=== PATIENT | male | born 1925 | race Caucasian/White ===

== ENCOUNTER 2016-06-09 11:34 | Inpatient (IN) | payer MEDICARE, BC ==
[~2016-06-09] VITALS: Ht 177.8 cm; Wt 86.8 kg
--- NOTE | ~2016-06-09 | DS ---
PATIENT'S NAME: PANKAJ MARTINEZ [facility] AGE: 89 Y [address] ROOM: [place] [address] [facility] ADMIT DATE: 06/09/2016 Discharge Summary DISCHARGE DATE: 06/27/2016 FAMILY PHYSICIAN: Chris Cool MD ATTENDING PHYSICIAN: Loki Livingston FINAL PRIMARY DISCHARGE DIAGNOSIS: Subdural bleed status post decompression. ADDITIONAL DISCHARGE DIAGNOSES: 1. Fil-DP-xngskcsgh myocardial infarction. 2. Coronary artery disease. 3. Aspiration, complete. 4. Aspiration pneumonia. 5. Hypernatremia. 6. Percutaneous endoscopic gastrostomy placement for tube feeds. 7. Acute cystitis. 8. Encephalopathy/sundowning. 9. Essential hypertension. 10. Tricuspid regurgitation. 11. Pulmonary hypertension. 12. Coronary artery disease. 13. Gastroesophageal reflux disease. 14. Malnutrition. CONSULTATIONS: 1. Dr. Mathew Osuna on admission. 2. [facility] Cardiology for NSTEMI on admission. 3. Palliative Care regarding tube feeding. 4. Nutrition regarding tube feeding. IMAGING STUDIES: The patient had a number of CT scans, which initially showed on admission a subdural hematoma which eventually had progression. The patient subsequently had decompression of the subdural hematoma. On subsequent exams, CT scan showed the patient had some edema which was resolving on his last scan on 06/20/2016. PROCEDURES PERFORMED: 1. Decompression of subdural hematoma. 2. Percutaneous endoscopic gastrostomy tube placement. 3. Modified barium swallow. FINAL DISCHARGE MEDICATION LIST: 1. Jevity at 60 mL/h. 2. Free water flushes 250 mL q.4 hours. 3. Zyloprim 100 mg 1 tablet p.o. q. day. PATIENT'S NAME: PANKAJ MARTINEZ [facility] AGE: 89 Y [address] ROOM: [place] [address] [facility] ADMIT DATE: 06/09/2016 Discharge Summary DISCHARGE DATE: 06/27/2016 FAMILY PHYSICIAN: Chris Cool MD ATTENDING PHYSICIAN: Loki Livingston 4. Amiodarone 200 mg 1 tablet p.o. q. day. 5. Metoprolol 12.5 mg 1 tablet per PEG tube b.i.d. 6. Augmentin 600 mg/5 mL, 2000 mg per PEG tube b.i.d. for 3 more days. 7. Teargen 1 drop 3 times daily in bilateral eyes. 8. Lipitor 80 mg 1 tablet per PEG tube at night. 9. Debrox 2 drops otic every Saturday. 10. Cardura 2 mg 1 tablet per PEG tube every evening. 11. Lasix 20 mg 1 tablet per PEG tube q. day. 12. Robitussin 5 mL per PEG tube twice daily. 13. Multivitamin 7.5 mL per PEG tube twice daily. 14. Aldactone 12.5 mg per PEG tube once daily. 15. Tylenol 325 to 650 mg per PEG tube q.4 hours p.r.n. pain or fever. 16. Atropine 1% ophthalmic solution 1 to 2 drops sublingually q.4 hours as needed for respiratory secretions. 17. Pepcid 20 mg per PEG tube per day p.r.n. 18. Levsin 0.125 mg sublingual 4 times a day p.r.n. secretions. 19. Olanzapine 2.5 mg per PEG tube at night as needed. 20. Zofran 4 mg per PEG tube q.6 hours as needed. 21. Vitamin D3, 2000 units per PEG tube q. day. 22. Vitamin B12, 5000 mcg per PEG tube every morning. 23. PreserVision 1 capsule per PEG tube twice daily. 24. Refresh tears applied to the eyes 3 times daily. 25. Eucerin cream applied 3 times daily as needed for rough skin. 26. Mometasone b.i.d. applied to rash as needed. DISCHARGE PHYSICAL EXAMINATION: GENERAL: A pleasant, but very hard of hearing elderly male, in no acute distress. HEENT: Head is normocephalic and atraumatic. Eyes, conjunctivae clear. Sclerae white. ENT, mucous membranes are dry. HEART: Regular rate and rhythm with a grade 3/6 systolic ejection murmur best heard at the left upper sternal border. LUNGS: Rhonchus sounds present throughout the anterior lung reza. ABDOMEN: Soft, nontender, and nondistended. PEG tube is in place. EXTREMITIES: Warm and well perfused. No clubbing, cyanosis, or edema. SKIN: Rashes consistent with a chronic venous stasis present in bilateral lower extremities. Otherwise, no acute rashes. HOSPITAL COURSE: Briefly, Mr. Pankaj Martinez is an 89-year-old gentleman who previously had the acute lacunar stroke, who had been on Plavix and aspirin, who had a fall sustained on 06/09/2016. He was brought to the emergency department, found to have on CT scan; subdural hematomas. Neurosurgery was consulted. Subsequent scans showed worsening of subdural hematoma. The patient was taken to the operating room for decompression. He did pretty well in the postoperative period. PATIENT'S NAME: LEILANI BALDERAS [facility] AGE: 89 Y [address] ROOM: [id number] [place], [place] [address] LOCATION: [facility] ADMIT DATE: 06/09/2016 Discharge Summary DISCHARGE DATE: 06/27/2016 FAMILY PHYSICIAN: Chris Cool MD ATTENDING PHYSICIAN: Loki Livingston However, the patient did end up having an NSTEMI which was ultimately treated with medical management per Cardiology. He was asymptomatic at that time. The patient did have some sundowning and acute encephalopathy ultimately resolved. He had no significant behaviors, but was pleasantly confused. The patient does have some baseline dementia. Unfortunately, he had developed a urinary tract infection which was treated initially with Rocephin, and the patient did have some clearing of his mental status. He began having significant difficulty with aspiration on modified barium swallow. Found that he was completely aspirating in every 6 minutes. He was made n.p.o. and per the power of city attorney, his son and daughter decided to go forth with a PEG tube. That was placed and the patient was started initially on bolus feeds. He did have some hypernatremia so his free water flushes were adjusted and that ultimately resolved as well. The patient received physical, occupational, and speech therapy while in the hospital. He will need to be transferred to care home facility for further treatment. His overall condition is fair. Prognosis for rehabilitation is poor. FOLLOW-UP RECOMMENDATIONS: 1. Follow up with new primary care provider covering the correction within 1 week. 2. Please call the [facility], if they have any questions or concerns. MD DHAVAL VIDALES/laina ARTHUR: 06/27/2016 09:40:55 /[id number] d: 06/27/16 1145 t: 07/05/16 0853, DISCHARGE SUMMARY
--- NOTE | ~2016-06-09 | CON ---
PATIENT'S NAME: PANKAJ MARTINEZ [facility] AGE: 89 Y [address] ROOM: [place] [address] LOCATION: [facility] ADMIT DATE: 06/09/2016 Consultation DISCHARGE DATE: FAMILY PHYSICIAN: GUADALUPE COOL MD ATTENDING PHYSICIAN: Loki Livingston REFERRING PHYSICIAN: TANESHA HU MD REFERRING PHYSICIAN: Guadalupe Cool MD CHIEF COMPLAINT: Status post subdural with high aspiration risk and need for enteral access. HISTORY OF PRESENT ILLNESS: The patient is an 89-year-old male who had fallen in a half-way. He had a subdural hematoma. This was evacuated. He has had ongoing trouble with oral intake with aspiration. He has been followed by Speech. Continues to have severe signs of aspiration. Because of this, I was asked to discuss PEG tube placement with the family. This had already been discussed in detail, and they had chosen to do this. HOME MEDICATIONS: Included: 1. Allopurinol. 2. Carbamide. 3. Clopidogrel. 4. Lasix. 5. Ranitidine. 6. Simvastatin. 7. Tamsulosin. 8. Metoprolol. 9. Tramadol. 10. Mometasone. 11. Olanzapine. 12. He currently is not on Plavix. ALLERGIES: NONE KNOWN. PAST MEDICAL HISTORY: Subdural, chronic renal failure, anxiety, and dementia. SOCIAL HISTORY: He lives in a half-way. . FAMILY HISTORY: PATIENT'S NAME: PANKAJ MARTINEZ [facility] AGE: 89 Y [address] ROOM: [place] [address] LOCATION: [facility] ADMIT DATE: 06/09/2016 Consultation DISCHARGE DATE: FAMILY PHYSICIAN: GUADALUPE COOL MD ATTENDING PHYSICIAN: Loki Livingston Noncontributory. REVIEW OF SYSTEMS: Somewhat difficult to obtain due to his mentation. PHYSICAL EXAMINATION: GENERAL: He is an elderly, 89-year-old male in no acute distress. HEENT: Head is normocephalic. Eyes are anicteric. HEART: Regular. No murmurs audible. LUNGS: Clear to auscultation bilaterally. ABDOMEN: Soft and nontender. EXTREMITIES: Do reveal edema. ASSESSMENT: 1. Status post subdural hematoma. 2. Frequent aspiration. PLAN: At this point in time, we discussed the findings with Mark's power of attorneys. We discussed Dobbhoff placement with ongoing speech therapy. We discussed no enteral access. We discussed PEG tube placement. Discussed the risks of each of these. After a long discussion with the risks including, but not limited to bleeding, infection, injury to other viscera, cardiac events, and malpositioning of the tube, they understand the risks and would like to proceed. We will keep him n.p.o. and plan on performing this in the near future. PAOLA J MD TARUN MIRAMONTES/kandicel /[id number] d: 06/21/16 1415 t: 06/29/16 1503, CONSULTATION REPORT
--- NOTE | ~2016-06-09 | CON ---
PATIENT'S NAME: LEILANI BALDERAS [facility] AGE: 89 Y [address] ROOM: [place] [address] LOCATION: [facility] ADMIT DATE: 06/09/2016 Consultation DISCHARGE DATE: FAMILY PHYSICIAN: GUADALUPE COOL MD ATTENDING PHYSICIAN: Loki Livingston DATE OF CONSULTATION: 06/09/2016 CHIEF COMPLAINT: Status post fall, bilateral frontal acute subdural hematomas. CLINICAL HISTORY AND HISTORY OF PRESENT ILLNESS: The patient is an 89-year-old male patient who is taking Plavix and had a fall from a standing position at the assisted living facility. The history was obtained from his son. The fall was unwitnessed. The patient was sent to the emergency for further investigations. He had a noncontrast CT head and that showed bilateral frontal acute subdural hematomas, large on the left side with no significant mass effect. The patient was stabilized. I was asked to assess the patient with regard to that. At the time of consultation, the patient denied headaches. He reported pain on the temporal region bilaterally. He denied weakness on his extremities. He denied neck pain or back pain. PAST MEDICAL HISTORY: Hypertension, confusion, and recent stroke. MEDICATIONS: Listed in the patient's chart. PAST SURGICAL HISTORY: CABG surgery, bilateral hip replacements. ALLERGIES: NO KNOWN DRUG ALLERGIES. SOCIAL HISTORY: The patient lives in an assisted living. No smoking or alcohol drinking. FAMILY HISTORY: Noncontributory to the patient's presentation. REVIEW OF SYSTEMS: It was limited, given the patient's confusion. PHYSICAL EXAMINATION: PATIENT'S NAME: LEILANI BALDERAS [facility] AGE: 89 Y [address] ROOM: [place] [address] LOCATION: [facility] ADMIT DATE: 06/09/2016 Consultation DISCHARGE DATE: FAMILY PHYSICIAN: GUADALUPE COOL MD ATTENDING PHYSICIAN: Loki Livingston GENERAL: The patient was cooperative and pleasant. HEENT: Head examination, it showed bruising on the temporal region bilaterally. NECK: No tenderness to palpation. Neck range of motion was painless. No palpable masses. RESPIRATORY: He was not in any respiratory distress. CARDIOVASCULAR: He has palpable pulses on the upper extremities. BACK: Not done. GAIT: Not done. NEUROLOGICAL: He was alert and oriented to himself and to [facility]. He followed 1 and 2 step commands. Pupils were 3 mm and reactive. Face was symmetric. He moves four extremities with no focal weakness. SKIN: It showed evidence of a healed sternotomy scar and bruising on the temporal region bilaterally. INVESTIGATIONS: Noncontrast CT head done here. I personally reviewed that. It showed age- related diffuse brain atrophy. It showed evidence of bilateral frontal acute subdural hematoma, small on the right side, moderate on the left side. No evidence of significant mass effect. IMPRESSION AND PLAN: An 89-year-old male patient on Plavix, had a fall from a standing position. Has bilateral frontal acute subdural hematomas, worse on the left side. His neurological examination is reassuring. RECOMMENDATION: 1. Admission to the hospital under hospitalist. 2. Repeat noncontrast CT head on June 10, 2016, to reassess the hematoma. 3. Hold Plavix. I discussed the imaging findings with the patient's son. I clearly indicated that the patient needs admission for closer observation. I also indicated that repeat noncontrast CT head will be done tomorrow to reassess the hemorrhage. I also talked about the possibility of chronic subdural hematoma, which may require surgical intervention. The patient asked appropriate questions and those were answered to his satisfaction. It was pleasure taking care of this patient and thanks for having us involved. MD IRMA WARREN/laina PATIENT'S NAME: PANKAJ MARTINEZ LEILANI L [facility] AGE: 89 Y [address] ROOM: [place] [address] LOCATION: [facility] ADMIT DATE: 06/09/2016 Consultation DISCHARGE DATE: FAMILY PHYSICIAN: GUADALUPE COOL MD ATTENDING PHYSICIAN: Loki Livingston /[id number] CC: Guadalupe Cool MD d: 06/09/16 1455 t: 06/10/16 5155, CONSULTATION REPORT
--- NOTE | ~2016-06-09 | CON ---
[facility] A[facility] 89 Y [address] ROOM: [address] [address] LOCATION: [facility]ICU ADMIT DATE: 06/09/2016 Consultation DISCHARGE DATE: FAMILY PHYSICIAN: GUADALUPE TOBIN MD ATTENDING PHYSICIAN: Loki Livingston REFERRING PHYSICIAN: TANESHA OSUNA MD A patient of Dr. Garcai as well as Dr. Osuna. Dear Colleagues: Thank you for asking me to see . Xavier Martinez who is an 89-year-old male patient who sustained a fall at the shelter where he is a resident of. He had a subdural hematoma which was evacuated this morning. During the surgery, apparently there was some ST depression noted, and EKG was performed after surgery which shows at least 1 to [address] depression involving leads I, II, aVL, V3, V4, V5, and V6. There is also slight ST elevation involving AVR as well as lead III. This whole pattern is consistent with global ischemia at this time. The patient has prior history of coronary artery bypass grafting done 19 years ago in [place]. He has not had a heart attack, according to his family. The patient currently denies having any chest pains or shortness of breath. His family states he has never had congestive heart failure or atrial fibrillation. He has never had a heart murmur either. The patient is unable to give any history of chest pain at this time. He denies at this time anyway. The patient has history of elevated cholesterol and hypertension. He does not look like he is diabetic. He is an ex-smoker. MEDICATIONS: 1. Allopurinol 100 mg a day. 2. Carbamide peroxide 2 drops in the ear. 3. Clopidogrel 75 mg a day. 4. Lasix 40 mg a day. 5. Ranitidine 150 mg a day. 6. Simvastatin 20 mg a day. 7. Tamsulosin 0.4 mg a day. 8. Vitamin D3. 9. Metoprolol 25 mg half b.i.d. 10. Acetaminophen 325 mg a day. 11. Vitamin B12. 12. Vitamin C. 13. Refresh Tears. [facility] AGE: 89 Y [address] ROOM: [place] [address] LOCATION: [facility] ADMIT DATE: 06/09/2016 Consultation DISCHARGE DATE: FAMILY PHYSICIAN: GUADALUPE TOBIN MD ATTENDING PHYSICIAN: Loki Livingston 14. Tramadol. 15. Mineral oil. 16. Mometasone furoate. 17. Olanzapine. 18. Sodium chloride. ALLERGIES: NO KNOWN DRUG ALLERGIES. PAST MEDICAL HISTORY: 1. Subdural hematoma as mentioned earlier. 2. Chronic renal failure, stage 3. 3. History of elevated blood sugars. 4. Anxiety. 5. Dementia. 6. Chronic edema. SOCIAL HISTORY: The patient lives in a shelter. His appetite and weight have been apparently stable. Sleep is poor. FAMILY HISTORY: No premature coronary artery disease. REVIEW OF SYSTEMS: 1. At this time, in the postoperative status, he is unable to give much of the review of systems other than the fact that he does not have any chest pain. 2. He has a lacunar infarct noted. 3. There is some history of behavioral disorder. PHYSICAL EXAMINATION: VITAL SIGNS: His blood pressure is 120s over 80s, heart rate is in the 90s and regular, respiration is 18, afebrile. HEENT: Normal. NECK: Supple with no JVD, thyromegaly, lymphadenopathy, or carotid bruit. CARDIAC: PMI is not well located. First and second heart sounds are regular. He does have a grade 2/6 systolic murmur heard all over the precordium. CHEST: Clear to auscultation. ABDOMEN: Soft. EXTREMITIES: No edema. CENTRAL NERVOUS SYSTEM: Intact. ASSESSMENT: An 89-year-old male patient with diffuse ST depression postoperatively who had PATIENT'S NAME: XAVIER MARTINEZLEILANI [facility] AGE: 89 Y [address] ROOM: [place] [address] LOCATION: [facility] ADMIT DATE: 06/09/2016 Consultation DISCHARGE DATE: FAMILY PHYSICIAN: GUADALUPE TOBIN MD ATTENDING PHYSICIAN: Loki Livingston a 3-vessel bypass 19 years ago in [place]. This is most consistent with global ischemia at this time. RECOMMENDATIONS: 1. Metoprolol 1 mg IV now. 2. We will consider getting troponins and BNP along with an echo now. He appears to have severe aortic stenosis by clinical exam. Again, I appreciate this opportunity to participate in the care of Mr. Xavier Martinez. MD LEONCIO METCALF/laina /[id number] d: 06/11/16 1725 t: 06/12/16 1326, CONSULTATION REPORT
--- NOTE | ~2016-06-09 | ECHO ---
Transthoracic Echocardiography Report (TTE) Demographics Patient Name LEILANI BALDERAS Date of Study 06/15/2016 L Patient Number [id number] Visit Number [id number] Date of 1925 Room Number [address] Gender Male Number Age 89 year(s) Referring Nestor Quijano Color Checker Anisha Cuenca, Physician RT,RVT,RDCS Physician Interpreting Nestor Quijano Director Commercial Sales Physician MD Supervising Ordering Nestor Quijano MD/MLP Physician MD Nurse Stress [employer] Autobody Repairer Conclusions Summary There is moderate pulmonary hypertension. The pulmonary pressure (RVSP) is 67 mmHg compared to 80s on 06/11/2016. Procedure Type of Study TTE procedure:Echo Limited w/o Contrast. Procedure Date Date: 06/15/2016 Start: 11:21 AM Study Location: Inpatient Portable Technical Quality: Fair Indications:Pulmonary hypertension. Appropriate Use Criteria: 3 Patient Status: Routine Findings Tricuspid Valve There is severe pulmonary hypertension. The pulmonary pressure (RVSP) is 67 mmHg. Contractility Score LV regional wall motion:(0-Non visualized 1-Normal 2-Hypokinesis 3-Akinesis 4-Dyskinesis 5-Aneurysm) Signature dtt: Macie Baez dtd: 06/15/16 1121 Physician Self Edit
--- NOTE | ~2016-06-09 | ER ---
PATIENT'S NAME: LEILANI BALDERAS [facility] AGE: 89 Y [address] ROOM: [place] [address] LOCATION: [facility] ADMIT DATE: 06/09/2016 ER/Outpatient Report DISCHARGE DATE: FAMILY PHYSICIAN: GUADALUPE COOL MD ATTENDING PHYSICIAN: Loki Livingston CHIEF COMPLAINT: Fall. HISTORY OF PRESENT ILLNESS: The patient arrives by ambulance for evaluation after being found down at his home. He has a history of stroke and recently was found down this morning. His down time was approximately up to 45 minutes. There was no alteration in consciousness. Reports from the facility are that he is normally oriented to self and somewhat talkative with confusion regarding situation and location. 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 His son is his primary care provider and is here. There is an area on his left alevism that the son states has been chronic. No other obvious complaints at this time. No recent changes in behavior. PAST MEDICAL HISTORY: Documented on the record and reviewed by me. SOCIAL HISTORY: Documented on the record and reviewed by me. MEDICATIONS: Documented on the record and reviewed by me. ALLERGIES: DOCUMENTED ON THE RECORD AND REVIEWED BY ME. REVIEW OF SYSTEMS: All systems reviewed and are negative as available except as noted in the HPI. PHYSICAL EXAMINATION: VITAL SIGNS: Blood pressure 161/89, pulse 78, respiratory rate is 18, temperature 97.5, and SpO2 is 82% on room air and in mid 90s on 1 to 2 L. GENERAL: Age-appropriate male in no obvious pain or distress. Resting comfortably on exam table. HEENT: Normocephalic and atraumatic other than the area that appears to be old on the left alevism region. No crepitus. Eyes are PERRL. The oropharynx is clear. NECK: Supple. Trachea is midline. CHEST: Heart is regular rate and rhythm with no murmurs. PATIENT'S NAME: LEILANI BALDERAS [facility] AGE: 89 Y [address] ROOM: [place] [address] LOCATION: [facility] ADMIT DATE: 06/09/2016 ER/Outpatient Report DISCHARGE DATE: FAMILY PHYSICIAN: CRISTA, GUADALUPE A MD ATTENDING PHYSICIAN: Loki Livingston LUNGS: Clear to auscultation bilaterally with no rhonchi, wheezes, or rales. ABDOMEN: Soft, nontender, and nondistended. No rebound or guarding. BACK: Nontender to palpation throughout. No CVA tenderness. NEUROLOGIC: The patient is awake, he is interactive, he is conversant. He is oriented to self, but not to location, but does know he is in [place]. Does not know the date. He does follow commands in all 4 extremities. EXTREMITIES: The extremities are warm and well perfused with no obvious abnormalities. SKIN: Grossly intact otherwise. LABORATORY DATA AND IMAGING STUDIES: Labs and X-rays: A CT scan of the head is notable for left-sided subdural hematomas. Labs; WBC 10.2, hemoglobin 14.7, and platelets of 187,000. INR is 1.0. PTT is 27. Sodium is 137, potassium 3.8, chloride 100, CO2 is 26, BUN is 28, creatinine is 1.6, and GFR is 41, this appears to be baseline. Troponin I is below threshold. CRP is 0.32. ProBNP is 1258 with no external signs of increased volume. Procalcitonin is below threshold. Blood gas; pH of 7.40, pCO2 is 40, and pO2 is 55 on 3 L giving a saturation of 88%. Lactate is 1.52. Urinalysis; 25 leukocytes, 15 protein, 150 blood, wbc's 0-2, rbc's 20- 50, epithelial cells are rare, and bacteria is negative. EKG reveals sinus rhythm, first-degree heart block with sinus arrhythmia. No signs of acute ischemia. No comparison is immediately available. Chest x-ray was reviewed and found to be grossly normal per my read. Radiology opinion pending. IMPRESSION: 1. Fall with traumatic subdural hemorrhage. 2. Baseline elevation of renal function. 3. Hypoxia, undetermined etiology, improved with supplemental oxygen. 4. Depressed mental status, baseline. EMERGENCY DEPARTMENT COURSE: The patient was evaluated as above. Upon receipt of the head CT results, I consulted Dr. Osuna, neurosurgeon. He is recommending no interventions at this time. The patient was placed on supplemental oxygen and was saturating in the low 90s without any respiratory distress. His BNP is slightly elevated, but there are no outward signs of heart failure as explanation for his hypoxia and his current presentation does not appear to be sepsis. I am unsure as to the etiology. He has no evidence of DVT and thus PE, I feel is less likely. He is on Plavix and that will need to be held for several days. All questions were answered for the family. The patient was admitted to Dr. Livingston, primary care provider covering for patient's primary, Dr. Guadalupe Cool. Family was updated at the bedside and they are amenable to the current plan. He is otherwise DNR, would not want extreme measures to keep his heart going according to documentation from the facility. All questions were answered and the patient was admitted to the hospital without further issue. PATIENT'S NAME: LEILANI BALDERAS [facility] AGE: 89 Y [address] ROOM: [id number] [place] [id number] LOCATION: [facility] ADMIT DATE: 06/09/2016 ER/Outpatient Report DISCHARGE DATE: FAMILY PHYSICIAN: GUADALUPE COOL MD ATTENDING PHYSICIAN: Loki Livingston MD RUCHI TORIBIO/kandicel /[id number] d: 06/09/16 2249 t: 06/11/16 1044, OUTPATIENT REPORT
--- NOTE | ~2016-06-09 | HP ---
PATIENT'S NAME: PANKAJ MARTINEZ [facility] AGE: 89 Y [address] ROOM: [place] [address] LOCATION: [facility] ADMIT DATE: 06/09/2016 History & Physical DISCHARGE DATE: FAMILY PHYSICIAN: GUADALUPE TOBIN MD ATTENDING PHYSICIAN: Tobias Salas DATE OF SERVICE: CHIEF COMPLAINT: Fall. HISTORY OF PRESENT ILLNESS: The patient is an 89-year-old male, who had a fall [facility] was brought to the emergency department. He was found to have an acute left subdural hemorrhage without mass effect. The patient is also noted to have an elevated BNP, but the normal chest x-ray and to be at his baseline with cognition with his dementia. The patient denies having any pain, headaches, visual changes, chest pain, shortness of breath or abdominal pain. PAST MEDICAL HISTORY: 1. Dementia. 2. Behavioral disorder. 3. Anxiety. 4. Coronary artery disease. 5. Chronic edema. 6. Essential hypertension. 7. Hyperlipidemia. 8. Lacunar infarct. FAMILY HISTORY: Noncontributory. SOCIAL HISTORY: The patient is a former tobacco user who quit 1975. ALLERGIES: CONTRAST DYE. PAST SURGICAL HISTORY: 1. Hip replacement, left. 2. Hip replacement, right. 3. Triple bypass. 4. Plastic surgery of the nose for a spot removal, noncancerous. REVIEW OF SYSTEMS: [facility]: [facility] 89 Y [address] ROOM: [place] [address] LOCATION: [facility] ADMIT DATE: 06/09/2016 History & Physical DISCHARGE DATE: FAMILY PHYSICIAN: GUADALUPE TOBIN MD ATTENDING PHYSICIAN: Tobias Salas Review of systems was obtained and complete positives and negatives as mentioned in the HPI. OBJECTIVE: VITAL SIGNS: Temperature 97.5, pulse 78, respirations 18, blood pressure 161/89. GENERAL: The patient is an alert and oriented to person. HEENT: Head: Normocephalic with what appears to be abrasion noted on the left forehead. Eyes: Conjunctivae clear. No scleral icterus. Mouth and oropharynx: Mucosa moist and patent. No lesion or exudates. NECK: Supple. No lymphadenopathy. No pain to palpation of C-spine. HEART: Regular rate and rhythm. LUNGS: Clear to auscultation bilaterally. ABDOMEN: Bowel sounds present and nontender. EXTREMITIES: No cyanosis. VASCULAR: Pulses +2 and equal bilaterally. NEUROLOGIC: Cranial nerves 2 through 12 grossly intact. Strength equal bilaterally in lower extremities. SKIN: No rashes. DIAGNOSTIC DATA: Labs: CMP showed an elevated glucose of 124 and creatinine of 1.6, which is basically his baseline with a creatinine of 1.5. CT showed acute left subdural hemorrhage without mass effect and his BNP was elevated at 1258. ASSESSMENT: 1. Subdural hemorrhage on the left, acute. 2. Chronic renal failure, stage 3. 3. Elevated glucose. 4. Hypertension. 5. Coronary artery disease. 6. Hyperlipidemia. 7. Anxiety. 8. Dementia. 9. Chronic edema. PLAN: At this time, neurosurgery was consulted. We will follow. We will monitor his blood pressures and adjust accordingly. I will check a hemoglobin A1c with his history of elevated glucose. His BNP is elevated, but he is not showing any signs of CHF and the chest x-ray is normal, so we will monitor. The patient's cardiovascular disease and lipids are stable along with his anxiety and he is at baseline with his cognition with his dementia. PATIENT'S NAME: LEILANI BALDERAS [facility] AGE: 89 Y [address] ROOM: [place] [address] LOCATION: [facility] ADMIT DATE: 06/09/2016 History & Physical DISCHARGE DATE: FAMILY PHYSICIAN: GUADALUPE TOBIN MD ATTENDING PHYSICIAN: Tobias Salas TOBIAS SALAS MD RLG/modl /[id number] D: 213 T: 841 HISTORY & PHYSICAL
--- NOTE | ~2016-06-09 | CON ---
[facility] AGE[facility] 89 Y [address] ROOM: [place] [address] LOCATION: [facility] ADMIT DATE: 06/09/2016 Consultation DISCHARGE DATE: 06/27/2016 FAMILY PHYSICIAN: Chris Cool MD ATTENDING PHYSICIAN: Loki Livingston DATE OF CONSULTATION: 06/20/2016 REFERRING PHYSICIAN: Mathew Osuna MD PALLIATIVE MEDICINE CONSULT LOCATION: Neurotrauma Unit [facility]– [place]. REFERRING PROVIDER: Dr. Cool. CHIEF COMPLAINT: Palliative care referral due to a failed modified barium swallow and goals of care conversation with the patient and family. HISTORY OF PRESENT ILLNESS: The patient is an 89-year-old male, resident of [facility], who was admitted after a fall resulting in the left subdural hematoma. He is status post evacuation on June 11, 2016. Also during his hospital stay, he had a non-STEMI postoperatively, and this was treated conservatively with medications by Cardiology. During his recovery on the neurotrauma unit, the patient was noted to be coughing quite frequently and to have wet lung sounds. He did undergo a modified barium swallow, which showed aspiration of all consistencies. Given this, Palliative Care was consulted to assist family with goals of care conversation in regard to his dysphagia and aspiration. PREVIOUS OPERATIONS: 1. Left frontal temporoparietal craniotomy and evacuation of acute subdural hematoma on 06/11/2016. 2. Hip replacement x2. 3. Coronary artery bypass. 4. Cardiac catheterization with stent placement. PAST MEDICAL HISTORY: 1. History of a previous lacunar stroke. 2. Dementia. 3. Coronary artery disease. 4. Hypertension. PATIENT'S NAME: LEILANI BALDERAS [facility] AGE: 89 Y [address] ROOM: [place] [address] [facility] ADMIT DATE: 06/09/2016 Consultation DISCHARGE DATE: 06/27/2016 FAMILY PHYSICIAN: Chris Cool MD ATTENDING PHYSICIAN: Loki Livingston 5. Hyperlipidemia. 6. BPH. 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 MEDICATIONS: 1. Tylenol 1000 mg p.o. 3 times daily. 2. Tylenol as needed. 3. Allopurinol 100 mg p.o. daily. 4. Carbamide peroxide ear drops. 5. Refresh Tears 1 drop 3 times daily to the eye. 6. Vitamin D 2000 units daily. 7. Plavix 75 mg daily. 8. Vitamin B12 5000 mcg p.o. daily. 9. Lasix 40 mg p.o. daily. 10. Metoprolol 12.5 mg daily. 11. Eucerin cream as needed. 12. Mometasone cream as needed. 13. Olanzapine 5 mg daily as needed for anxiety. 14. Zantac 150 mg p.o. daily. 15. Zocor 20 mg p.o. daily. 16. Flomax 0.4 mg p.o. daily. 17. Ultram 25 mg p.o. 3 times daily as needed. 18. PreserVision multivitamin 1 cap twice daily. ALLERGIES: NO KNOWN DRUG ALLERGIES. THERE IS A NOTE OF SENSITIVITY TO DYES. SOCIAL HISTORY: The patient is , has been living at the [facility] for the last 8 years. He has a very distant history of tobacco use. No current tobacco or alcohol use. FAMILY HISTORY: Both his parents had coronary artery disease. REVIEW OF SYSTEMS: GENERAL: Appetite has been down since here at the hospital. No known changes in weight. No recent fever, chills, or night sweats. Positive for fatigue. HEENT: Reports that his vision has gotten worse, now he is nearly entirely blind over the last year or so, can see some shadows. He is hard of hearing. Deaf in the left ear. Hard of hearing in the right. Denies headaches. No sinus congestion. RESPIRATORY: Positive for very loose moist cough, has required some suctioning at times. Denies feeling short of breath. CARDIOVASCULAR: No chest pain, pressure, or palpitations. No peripheral PATIENT'S NAME: LEILANI BALDERAS [facility] AGE: 89 Y [address] ROOM: [place] [address] LOCATION: [facility] ADMIT DATE: 06/09/2016 Consultation DISCHARGE DATE: 06/27/2016 FAMILY PHYSICIAN: Chris Cool MD ATTENDING PHYSICIAN: Loki Livingston edema but does generally wear EdemaWear. GASTROINTESTINAL: Denies nausea, vomiting, diarrhea, or constipation. No blood in his stools. The patient denies having any difficulties chewing or swallowing. GENITOURINARY: Denies dysuria. MUSCULOSKELETAL: Denies any joint swelling or joint pain. No back pain. He was able to ambulate independently at the assisted living facility. Here at the hospital for the last few days has been bed and chair bound. NEUROLOGICAL: Denies any numbness or tingling. Denies dizziness. No recent seizures. INTEGUMENTARY: No moles, rashes, or open areas. Does have a surgical incision to his head. PSYCHIATRIC: He has a history of dementia. Did have some confusion during this hospital stay, which has for the most part cleared to his baseline. PHYSICAL EXAMINATION: VITAL SIGNS: Blood pressure 126/70, heart rate 66, temperature 98.3, respirations 20, and O2 saturation 95% on room air. GENERAL: Reveals a sleeping but easily arousable elderly white male, who is sitting up in the recliner. Does not appear to be in any acute distress but does have slightly labored breathing at rest. HEENT: Normocephalic, does have a surgical incision, which is stapled to the left side of his head. Pupils are nonreactive. Sclerae anicteric. Conjunctivae pink. Tongue and mucous membranes are moist and pink. Dentition is poor. CARDIOVASCULAR: Heart tones are regular rate and rhythm. He does have a murmur. RESPIRATORY: Respirations are slightly labored at rest. Lung sounds are coarse with rhonchi bilaterally. His voice tone is moist. GASTROINTESTINAL: Abdomen is soft. Nontender. Bowel sounds are present. MUSCULOSKELETAL: No significant joint deformities. Peripheral pulses are 1+ bilaterally. No clubbing, cyanosis, or edema. SKIN: Warm and dry. There is venous staining to bilateral lower extremities. NEUROLOGICAL: Grossly intact. Mental status is unremarkable. PSYCHIATRIC: Displays appropriate mood and affect for situation. IMPRESSION AND PLAN: 1. Dysphagia with a modified barium swallow, which revealed aspiration of all consistencies. 2. Dementia. 3. Advanced age. 4. Code status. The patient is a DNR/DNI. I did visit with the patient's son, who is power of ferry engineer and at bedside. I discussed with him the results of the modified barium swallow, and his understanding of this. I talked through various options, briefly mentioned PATIENT'S NAME: PANKAJ MARTINEZLEILANI [facility] AGE: 89 Y [address] ROOM: [place] [address] LOCATION: [facility] ADMIT DATE: 06/09/2016 Consultation DISCHARGE DATE: 06/27/2016 FAMILY PHYSICIAN: Chris Cool MD ATTENDING PHYSICIAN: Loki Livingston the possibility of artificial nutrition through tube feeding, but I told him that this would not fix aspiration problem, and he could continue to aspirate on his own secretions, and that with tube feedings comes the risk of a tube being pulled out by the patient given his dementia or diarrhea from the feedings and various other complications. Also visited with them at length the use of careful hand feeding for quality of life, but we would have to note the risk of aspiration would be very high, and there would be recurrent pneumonia. Discussed with him the recurrent pneumonia and recurrent hospitalization versus more of a comfort quality of life and hospice approach to things. Provided education to the son on nursing home stay versus hospice at a snf versus going back to the assisted living facility with caregivers and the possibility of hospice as well. Discussed various options. At this point, son will follow up with his sister later melissa, and I will follow up in the morning to answer any questions and assist with further goals of care conversation. I answered family's questions to their satisfaction. They denied any other concerns at this time. At this point, the goal is for the patient to remain comfortable and not to pursue anything that would decrease his quality of life in the long run. Total visit was 45 minutes, greater than 50% of this time was spent providing education and counseling. Thank you for allowing me to assist the patient and family. CINTHYA ROD NP FOR EMIL MCCARTHY MD DLS/modl /[id number] CC: Chris Cool MD d: 06/27/162101 t: 07/02/16 1242, CONSULTATION REPORT
--- NOTE | ~2016-06-09 | OR ---
PATIENT'S NAME: LEILANI BALDERAS [facility] AGE: 89 Y [address] ROOM: [address] [address] LOCATION: [facility] ADMIT DATE: 06/09/2016 OR/Procedure Report DISCHARGE DATE: FAMILY PHYSICIAN: GUADALUPE TOBIN MD ATTENDING PHYSICIAN: Loki Livingston SURGEON: Leo Miramontes MD SUPERINTENDENT RECREATION: DATE OF PROCEDURE: 06/21/2016 PREOPERATIVE DIAGNOSIS: Recurrent aspiration with need for enteral access. POSTOPERATIVE DIAGNOSIS: Recurrent aspiration with need for enteral access. PROCEDURE: EGD with percutaneous endoscopic gastrostomy. FINDINGS: PEG tube appeared to be in good position at 4 cm from the skin. ESTIMATED BLOOD LOSS: Minimal. COMPLICATIONS: None. INDICATIONS: This patient is an 89-year-old male who had an intracranial bleed, had had surgery for this. He has been having difficulty with swallowing and repeated aspiration. Because of this, I was asked to place a PEG. We discussed PEG placement with the patient and his family and the risks, benefits, and alternatives, and they elected to proceed. DESCRIPTION OF PROCEDURE: The patient was taken into the endoscopy suite and placed supine. A bite block was positioned. He was given sedation by Anesthesia. Flexible endoscope was easily inserted into the esophageal lumen and advanced through the esophagus and down into the gastric lumen without difficulty. The stomach was maximally insufflated. A spot on the anterior abdominal wall was selected for placement. There was a light reflex in motion with a one-to-one. A local anesthetic was then infiltrated. After this area was cleansed, a small incision was created. The sheath and introducer needle were then inserted, and the needle was then removed. This was done under endoscopic guidance. The wire was placed in the gastric lumen. The snare was placed through the flexible endoscope. The wire was snared. The wire, snare, and flexible endoscope were then all brought out through the mouth. The PEG tube was placed over the wire. The wire was again snared. The wire, PEG tube, and flexible endoscope were then all pulled back into the gastric lumen. The wire was released. A rubber bumper was placed against the abdominal wall to hold the PEG, which was in good position at 4 cm at the skin. The rest of the gastric lumen was without significant abnormalities. It appeared to be in good position. The scope was withdrawn. He tolerated this well. The PEG PATIENT'S NAME: LEILANI BALDERAS [facility] AGE: 89 Y [address] ROOM: [address] [address] LOCATION: [facility] ADMIT DATE: 06/09/2016 OR/Procedure Report DISCHARGE DATE: FAMILY PHYSICIAN: GUADALUPE TOBIN MD ATTENDING PHYSICIAN: Loki Livingston tube was secured in place to gravity. He tolerated this well. LEO J MD BULMARO MIRAMONTESO/modl /[id number] d: 06/21/162026 t: 06/29/16 1506, OPERATIVE SUMMARY
--- NOTE | ~2016-06-09 | OR ---
PATIENT'S NAME: LEILANI BALDERAS [facility] AGE: 89 Y [address] ROOM: [place] [address] LOCATION: [facility] ADMIT DATE: 06/09/2016 OR/Procedure Report DISCHARGE DATE: FAMILY PHYSICIAN: GUADALUPE COOL MD ATTENDING PHYSICIAN: Loki Livingston SURGEON: Mathew Osuna MD MUSIC AGENT: DATE OF PROCEDURE: 06/11/2016 ANESTHESIOLOGIST: Derrick Garcia MD ANESTHESIA: General. COMPLICATIONS: None. ESTIMATED BLOOD LOSS: Minimal. PREOPERATIVE DIAGNOSIS: Left-sided acute subdural hematoma with mass effect. POSTOPERATIVE DIAGNOSIS: Left-sided acute subdural hematoma with mass effect. PROCEDURE PERFORMED: Left frontotemporoparietal craniotomy and evacuation of acute subdural hematoma. CLINICAL HISTORY: The patient is an 89-year-old male patient who takes Plavix, had a fall from a standing position on June 09, 2016. He was seen at our hospital, and a noncontrast CT head showed a small right subdural hematoma and moderate-sized left subdural hematoma with no significant mass effect. The patient was admitted for observation. He had a repeat scan on June 10, 2016, and that showed significant expansion of the hematoma. I recommended the above-mentioned surgery to the patient's family. Risks and benefits were discussed. Signed informed consent was obtained, and the patient was brought for surgery. DESCRIPTION OF PROCEDURE: The patient was seen in the preoperative care unit, and the correct side was marked. Then, he was transferred to the main operating theater, was given general anesthetic, and underwent endotracheal intubation without complications. Preoperative antibiotics and steroids were given. Calf compressors were used throughout the procedure. The patient was positioned supine on the table, the patient's head was turned to the right side to expose the left temporoparietal scalp. A linear incision was marked on the left side. Hair overlying it was clipped off. The surgical site was then prepped and draped as per usual. All the patient's joints and bony prominences were securely padded. PATIENT'S NAME: LEILANI BALDERAS [facility] AGE: 89 Y [address] ROOM: [place] [address] LOCATION: [facility] ADMIT DATE: 06/09/2016 OR/Procedure Report DISCHARGE DATE: FAMILY PHYSICIAN: GUADALUPE COOL MD ATTENDING PHYSICIAN: Loki Livingston The proposed skin incision was infiltrated with 0.25% Marcaine with epinephrine. Skin was sharply opened down to the bone, and Kirstie clips were used to control bleeding. Skin flaps were elevated anterior and posterior, and self-retaining retractor was placed in. Then, a high-speed Midas Giancarlo drill was brought in, and one bur hole was fashioned down to the dura. Bone flap was turned and elevated without complications. The dura was tense because of the hematoma. Then, I proceeded to open the dura. It was opened in a C-shaped fashion and immediately, I came across a very large acute subdural hematoma that was causing significant mass effect. The dura was tacked away with 4-0 Nurolon. The acute subdural hematoma was completely evacuated using suction and irrigation. Any bleeding points on the surface of the brain were coagulated. I had no complications. Hemostasis in the subdural space was achieved. Given the history of Plavix, I asked the anesthesiologist to administer platelets and DDAVP to decrease the risk of rebleeding. That was done intraoperatively. Then, I proceeded to closure. The dura was closed in a watertight fashion using 4-0 Nurolon. DuraGen was laid on the dura. Bone flap was then anchored to the skull with titanium plates and mini screws. The wound was then washed with bacitracin-containing irrigation. The skin was then closed in layers with 2-0 Vicryl to the galea and marty to the skin. A sterile dressing was applied. At the end of the operation, the instrument and sponge counts were correct. The patient tolerated the operation without complications. MD IRMA WARREN/modl /[id number] CC: Guadalupe Cool MD d: 06/11/16 1653 t: 06/14/160, OPERATIVE SUMMARY
--- NOTE | ~2016-06-09 | ECHO ---
Transthoracic Echocardiography Report (TTE) Demographics Patient Name LEILANI BALDERAS Date of Study 06/11/2016 [place] Patient Number [id number] Visit Number [id number] Date of 1925 Room Number G6212 Gender Male Number Age 89 year(s) Referring Nestor Quijano Assembler Watch Train Raffy Corona RVT Physician MD Gary Flores MD Physician Interpreting Nestor Quijano Director Clinical Applications Physician Supervising Ordering Nestor Quijano MD/MLP Physician Nurse Stress Two Way Radio Installer Conclusions Contractility Score Summary Normal Left Ventricular contractility was noted. Summary The estimated left ventricular ejection fraction is 55-60%.The left ventricle is normal in size .Moderate concentric left ventricular hypertrophy.RWMAs are difficult to comment on. MAC. Mild MR. Mildly reduced right ventricular function. The right atrium is mildly dilated. Increased RA pressures. There is moderate aortic stenosis by the Continuity Equation. The peak velocity is 3.21 m/s, the mean gradient is 23 mmHg, and the valve area based on the continuity equation is 1.31 cm2, stroke volume index is 39.87 ml/m2. There is trivial aortic regurgitation by color Doppler. Mild tricuspid regurgitation by color Doppler. There is severe pulmonary hypertension. The pulmonary pressure (RVSP) is 87 mmHg. Mild ME. Procedure Type of Study TTE procedure:2D Echocardiogram, M-Mode, Doppler , Color Doppler. Procedure Date Date: 06/11/2016 Start: 12:00 AM Study Location: Inpatient Portable Technical Quality: Adequate visualization Indications:Abnormal ECG. Additional Indications:Depressed ST Appropriate Use Criteria: 9 Patient Status: STAT HR: 96 bpm M-Mode/2D Measurements LV Diastolic Dimension: 3.37 cm LV Systolic Dimension: 2.32 cm LV Septum Diastolic: 1.66 cm LV PW Diastolic: 1.42 cm AO Root Dimension: 2.9 cm Cardiac Output: 7.54 l/min LA Dimension: 4.7 cm LVOT: 2.6 cm LVOT VTI: 14.8 cm RV Base: 4.15 cm LV Stroke volume: 78.54 ml RV Length: 6.86 cm TAPSE: 1.55 cm TDI-S': 7.13 cm/s Doppler Measurements AV Peak Velocity: 3.21 m/s MV Peak E-Wave: 0.89 m/s AV Peak Gradient: 41.22 mmHg MV Peak A-Wave: 0.65 m/s AV Mean Gradient: 23 mmHg MV E/A Ratio: 1.37 LVOT Peak Velocity: 0.8 m/s TR Velocity:4.23 m/s PV Peak Velocity: 0.95 m/s TR Gradient:71.57 mmHg PV Peak Gradient: 3.61 mmHg Estimated RAP:15 mmHg Estimated PASP: 86.57 mmHg Estimated RVSP: 87 mmHg A' Septal Velocity: 13.4 m/s E' Septal Velocity: 4.61 m/s A' Lateral Velocity: 15.4 m/s E' Lateral Velocity: 6.25 m/s Findings Left Ventricle The left ventricle is normal in size .Moderate concentric left ventricular hypertrophy.Normal EF.WMAs are difficult to comment on. Right Ventricle Mildly reduced right ventricular function.RV size is normal. Left Atrium Normal left atrial size. Right Atrium The right atrium is mildly dilated. Dilated IVC with poor inspiratory collapse consistent with elevated RA pressure. Mitral Valve Mild mitral annular calcification. Mild mitral regurgitation by color Doppler. Aortic Valve There is moderate aortic stenosis by the Continuity Equation. The peak velocity is 3.21 m/s, the mean gradient is 23 mmHg, and the valve area based on the continuity equation is 1.31 cm2, stroke volume index is 39.87 ml/m2. There is trivial aortic regurgitation by color Doppler. Tricuspid Valve Mild tricuspid regurgitation by color Doppler. There is severe pulmonary hypertension. The pulmonary pressure (RVSP) is 87 mmHg. Pulmonic Valve The pulmonic valve is not well visualized. Trivial pulmonic valve regurgitation by color Doppler. Pericardial Effusion No evidence of pericardial effusion. Miscellaneous Visualized portions of the aortic root and ascending aorta appear normal in size. Pleural Effusion No evidence of pleural effusion. Contractility Score LV regional wall motion:(0-Non visualized 1-Normal 2-Hypokinesis 3-Akinesis 4-Dyskinesis 5-Aneurysm) Signature dtt: Macie Baez dtd: 06/11/16 0000 Physician Self Edit
[~2016-06-09 11:34] MED LIST changes: -EUCERIN CREME120 GM TOP; -MOMETASONE FURO45 GM TOP; -MURO 128 5% OP3.5 GM OPHTH; -OLANZAPINE5 MG PO; -PRESERVISION A1 EACH PO; -REFRESH TEARS15 ML OPHTH; -TYLENOL EXTRA500 MG PO; -ULTRAM50 MG PO; -VITAMIN B-125000 MC1 PO
[2016-06-09 12:19] LABS: BILIRUBIN URINE NEGATIVE (NEGATIVE); BLOOD URINE 150 /UL (NEGATIVE); COLOR URINE YELLOW (YELLOW); GLUCOSE URINE NEGATIVE (NEGATIVE); KETONE URINE NEGATIVE (NEGATIVE); LEUKOCYTES URINE 25 /UL (NEGATIVE); NITRITE URINE NEGATIVE (NEGATIVE); PROTEIN URINE 15 mg/dL (NEGATIVE); TURBIDITY URINE CLEAR (CLEAR); UROBILINOGEN URINE NORMAL (NORMAL)
[2016-06-09 12:22] LABS: BICARBONATE 24.6 mmol/L (18.0-23.0); PCO2 40 mmHg (35-45); PO2 55 mmHg (80-90)
[2016-06-09 12:23] LABS: LACTATE 1.52 mEq/L (0.50-1.60)
[2016-06-09 12:25] LABS: BASOPHIL % 0.3 %; EOSINOPHIL # 0.1 K/uL (0.0-0.5); EOSINOPHIL % 0.6 %; HEMATOCRIT 43.3 % (33.0-50.0); HEMOGLOBIN 14.7 g/dL (11.0-16.0); IMMATURE GRANULOCYTE # 0.2 K/uL (0.0-0.3); IMMATURE GRANULOCYTE % 1.5 %; LYMPHOCYTE # 0.6 K/uL (0.8-4.0); MCH 33.1 pg (27.0-34.0); MCHC 33.9 gm/dL (32.0-36.5); MCV 97.5 fl (83.0-98.0); MONOCYTE # 0.5 K/uL (0.0-1.0); MONOCYTE % 5.1 %; MPV 9.6 fl (9.4-12.4); NEUTROPHIL # (ANC) 8.8 K/uL (1.4-9.0); NEUTROPHIL % 86.5 %; NRBC % 0 /100WBC (0-0.00); PLATELET COUNT 187 K/uL (150-450); RDW-CV 14.1 % (11.9-14.6); WBC 10.2 K/uL (4.0-11.0)
[2016-06-09 12:29] LABS: RBC 4.44 M/uL (3.50-5.50)
[2016-06-09 12:29] LABS: WBC URINE 0-2 #/HPF (NEGATIVE)
[2016-06-09 12:30] LABS: BACTERIA URINE NEGATIVE (NEGATIVE); EPITHELIAL URINE RARE #/HPF (NEGATIVE); RBC URINE 20-50 #/HPF (NEGATIVE)
[2016-06-09 12:36] LABS: PROTIME 10.8 SECONDS (9.6-11.1); PTT 27 SECONDS (25-32)
[2016-06-09 12:45] LABS: ALBUMIN 3.7 gm/dL (3.5-5.0); ALK PHOS 91 IU/L (33-138); ALT 21 IU/L (12-78); ANION GAP 14.8 (10.0-19.0); AST 20 IU/L (10-40); BLOOD UREA NITROGEN 28 mg/dL (6-24); CALCIUM 8.9 mg/dL (8.5-10.5); CHLORIDE 100 mMol/L (96-110); CO2 26 mMol/L (22-32); CREATININE 1.6 mg/dL (0.6-1.3); ESTIMATED GFR (MDRD EQUATION) 41; POTASSIUM 3.8 mMol/L (3.7-5.1); SODIUM 137 mMol/L (135-145); TOTAL BILIRUBIN 0.6 mg/dL (0.0-1.5)
[2016-06-09] MEDS ORDERED: VITAMIN B-125000 MC1 PO (15:33)
[2016-06-09] MEDS ORDERED: PRESERVISION A1 EACH PO (15:36)
[2016-06-09] MEDS ORDERED: TYLENOL EXTRA500 MG PO (15:38)
[2016-06-09] MEDS ORDERED: REFRESH TEARS15 ML OPHTH (15:39)
[2016-06-09] MEDS ORDERED: ULTRAM50 MG PO (15:40)
[2016-06-09] MEDS ORDERED: EUCERIN CREME120 GM TOP (15:43)
[2016-06-09] MEDS ORDERED: MOMETASONE FURO45 GM TOP (15:44)
[2016-06-09] MEDS ORDERED: OLANZAPINE5 MG PO (15:47)
[2016-06-09] MEDS ORDERED: MURO 128 5% OP3.5 GM OPHTH (15:49)
--- NOTE | 2016-06-09 19:37 | NUR ---
Patient admitted for subdural hematoma. Patient had fallen at assisted living. Denies pain, had episode of nausea. No vomit. Unable to state place, time and person. 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 Bruises to arm and bottom and back of head. IV SL in left hand. Incontinent of urine and stool. Family at bedside.
--- NOTE | 2016-06-10 04:17 | NUR ---
Significant Event: Patient is alert, oriented to person and town. Patient is able to recall that he fell. Equal strength to extremities. Moves all extremities spontaneously and to command. Incontient of urine. VSS. Weaned to room air. Pleasant and cooperative with cares. Follow up: continue to monitor
[2016-06-10 05:46] LABS: CREATININE 1.5 mg/dL (0.6-1.3)
--- NOTE | 2016-06-10 13:12 | NUR ---
PT evaluation orders noted, per nurse patient likely going to surgery, will hold PT today and check on pt 06/11 Sixto Cox PT 06/10/16
--- NOTE | 2016-06-10 19:28 | NUR ---
ULTRA HIGH FALL RISK transfered from ICU at 1155 per bed, Significant Event: A/O X2, BLIND, CHILKAT, baseline is slight confused. needs fed, good appetite, tolerates clear liquids well, bedrest, turned q2hr, CT scan this afternoon, incontinent of bowel & bladder, coccyx reddened, back of head reddned, L)FA saline lock, lungs clear/diminished, O2 sat 87% on RA, O2 2l/nc, PT/OT, family @ bedside. Follow up: NPO after MN for surgery in a.m. then transfer to ICU post-op, consents signed by family. full lift if OOB
--- NOTE | 2016-06-11 04:45 | NUR ---
Significant Event: PATIENT IS ALERT AND ORIENTED X3. FOLLOWS COMMANDS. IS FORGETFUL AT TIMES. TODAY IS HIS BIRTHDAY! PUPILS ARE 2 BRISK- NONREACTIVE. DENIES DUFFY. DENIES N/T. DENIES PAIN. NVS Q2H. TACHYCARDIC WITH PVC'S THIS SHIFT. KEEP SBP LESS THAN OR EQUAL TO 150- HYDRALAZINE AND LABETALOL GIVEN THIS SHIFT. VENOUS STAINING TO LOWER EXTREMITIES. 2L OF O2 PER NC. NPO FOR CRANIOTOMY TODAY 06/11. LAST BM 3-ACTIVE X4. L) FA PIV SL'D. USE LIFT FOR TRANSFERS. PATIENT IS VERY [place] & BLIND. Follow up: MONITOR SBP.
--- NOTE | 2016-06-11 10:52 | NUR ---
D: Physical Therapy Note. I: Patient not seen by Physical Therapy this date due to patient having surgery for Craniotomy with Hematoma Evacuation. Patient then transferred to ICU. P: Initiate Physical Therapy when ordered by physician post-op. 06/11/16 Veronica lAcala,PT
--- NOTE | 2016-06-11 12:30 | NUR ---
Introduced self and role of care management to patient and 2 sons. Most of conversation with patient's oldest son, Ralf. Patient lives at [facility]. Son says they moved him here from [place] to be closer to family. Son is in process of moving to [facility]. He says patient has been not doing as well the last couple of months. He does use a walker at [facility] and does require assist of 1 to get up, do ADLS and get to meals, etc. Talked to him briefly about acute inpatient rehab and skilled care. Son says patient has been in skilled care in [place] before. Son plans to talk with [facility] staff as he is concerned the move to SNF may be a permanent move. He says if [place] thinks he can come back they would probably look at SNF in [place]. If this will be permament move they would probably look at SNF in [place] or [place] or somewhere a little closer to where they live. Will follow.
--- NOTE | 2016-06-11 15:35 | NUR ---
Significant Event: PT alert, disoriented to time, forgetful. VSS, O2 at 2L per nasal cannula, tachy at times. Dressing intact, stapled to L)head. Minimal c/o pain, well controlled with tylenol at 1330. Bilateral IV's patent. PT repositioned frequently. Briefs on for incontinence. Small BM this shift. Follow up:
--- NOTE | 2016-06-12 04:35 | NUR ---
Significant Event: Patient alert, oriented to person and knows we are in [place] in a medical facility. Not oriented to time, family states that is normal. Pupils equal and reactive 6mm. Moves all extremeties to command and spontaneously with moderate strength. SR/ST this shift, continues on amiodarone drip. BP stable 110-140s systolically. Afebrile. Lung sounds clear and diminished throughout, slightly coarse at times. Bowel sounds active, no bm this shift. Incontinent of urine x3. No new or worsening skin issues. PIV x2 intact with amiodarone infusing. Follow up: CT head this shift awaiting MD review. Continue with hourly neuro checks.
[2016-06-12 11:29] LABS: ANION GAP 15.7 (10.0-19.0); CREATININE 1.5 mg/dL (0.6-1.3); POTASSIUM 3.7 mMol/L (3.7-5.1)
--- NOTE | 2016-06-12 12:00 | NUR ---
Call from son Ralf to come and meet with him and siblings. Met with Ralf and his sister. Brother was on the phone. They have been talking about skilled facility options for their Dad and they think staying in [place] would be best. They are thinking this will be a permanent move for him. I earlier contacted the [place] SNFs for male beds. Told the [facility] does not have male beds and does not anticipate any openings at this time. Gave them contact information and address for the other 3 facilities in [place]. They are planning to go tour the facilities today. They will let me know tomorrow their order of preference for the facilities. Will follow.
--- NOTE | 2016-06-12 14:41 | NUR ---
Significant Event: Alert to person and place. Follows commands. Speech clear. Denies N/T. Denies headache. Equal strenggth throughout. Pupils 6MM and sluggish bilaterally. NSR. Amidarone IV still infusing. VSS. Afebrile. 2L NC with sats in the mid 90s. LS clear and diminsihed. No BM this shift. Incontinent of urine. Mechanical soft diet with thin liquids. Pills crushed in applesauce. L) head dressing with dressing. Shadow drainage noted. No increase in size. Red bottom. Blanchable. L) FA PIV removed this shift. Leaking. R) FA PIV infusing with no complications. Full lift. VQ scan this shift. Denies pain. Family at bedside. Follow up: NTU tomorrow?
--- NOTE | 2016-06-13 04:24 | NUR ---
Significant Event: Patient alert, oriented to person and place, not time. No neurological changes from previous night. BP stable with oral BP meds, no cardiac events. On 2L/NC, lung sounds clear and diminished throughout. Bowel sounds active, no bm this shift. Tolerates crushed pills in applesauce. Incontinent of urine x2 this shift. No new or worsening skin issues. Afebrile. PIV x1 saline locked. Follow up: Status change/transfer?
[2016-06-13 05:27] LABS: HEMOGLOBIN 10.6 g/dL (11.0-16.0); MCHC 34.1 gm/dL (32.0-36.5); MCV 97.8 fl (83.0-98.0); MPV 10.3 fl (9.4-12.4); PLATELET COUNT 151 K/uL (150-450); RDW-CV 14.3 % (11.9-14.6); WBC 14.5 K/uL (4.0-11.0)
[2016-06-13 05:29] LABS: HEMATOCRIT 31.1 % (33.0-50.0); MCH 33.3 pg (27.0-34.0); RBC 3.18 M/uL (3.50-5.50)
[2016-06-13 05:41] LABS: ALBUMIN 2.6 gm/dL (3.5-5.0); ANION GAP 14.9 (10.0-19.0); CALCIUM 8.1 mg/dL (8.5-10.5); CREATININE 1.4 mg/dL (0.6-1.3); POTASSIUM 3.9 mMol/L (3.7-5.1); TOTAL PROTEIN 5.8 g/dL (6.0-8.4)
[2016-06-13 05:42] LABS: TOTAL BILIRUBIN 1.1 mg/dL (0.0-1.5)
[2016-06-13 06:16] LABS: ABSOLUTE NEUTROPHIL CT (ANC) 12.3 K/uL (1.4-9.0); BANDED NEUTROPHIL # 1.7 K/uL (0.0-0.1); BANDED NEUTROPHILS % 12 %; LYMPHOCYTE # 0.9 K/uL (0.8-4.0); LYMPHOCYTE % 6 %; MONOCYTE # 0.7 K/uL (0.0-1.0); SEGMENTED NEUTROPHIL # 10.6 K/uL (1.4-9.0); SEGMENTED NEUTROPHIL % 73 %
[2016-06-13 16:45] LABS: BILIRUBIN URINE NEGATIVE (NEGATIVE); BLOOD URINE 150 /UL (NEGATIVE); GLUCOSE URINE NEGATIVE (NEGATIVE); KETONE URINE NEGATIVE (NEGATIVE); LEUKOCYTES URINE 500 /UL (NEGATIVE); NITRITE URINE NEGATIVE (NEGATIVE); PROTEIN URINE 100 mg/dL (NEGATIVE); UROBILINOGEN URINE 1 mg/dL (NORMAL)
--- NOTE | 2016-06-13 16:48 | NUR ---
SIGNIFICANT EVENT: PATIENT ALERT, ORIENTED TO PERSON AND PLACE. DISORIENTED TO TIME. PATIENT OPENS EYES TO VOICE AND SPONTANEOUSLY. PATIENT OCCASIONALLY STATES ABLE TO VISUALIZE SHADOWS OTHERWISE BLIND MOST OF THE TIME (PER PATIENT AND PER FAMILY, THIS IS A CHRONIC ISSUE SINCE CVA OCCURANCE ~30 DAYS AGO.) PUPILS EQUAL, CURRENTLY SLUGGISH REACTION. SPEECH IS CLEAR. NO FACIAL ASYMMETRY. CONFUSED AND FORGETFUL COMMENTS. PATIENT DENIES ANY NUMBNESS, TINGLING, OR PAIN. PATIENT MOVES ALL 4 EXTREMITIES SPONTANEOUSLY AND TO COMMANDS. SIGNIFICANT WEAKNESS THROUGHOUT, EQUAL STRENGTH. PATIENT STOOD AT BEDSIDE AND AMBULATED IN ROOM WITH NURSING STAFF, PT, AND OT MULTIPLE TIMES THROUGHOUT THE DAY TODAY. PATIENT AMBULATES WITH HEAVY 2 ASSIST, GAITBELT, AND WALKER. PATIENT HAS BEEN IN SINUS RHYTHM, HR 60-70S. PULSES PALPABLE THROUGHOUT, THREADY IN LOWER EXTREMITIES. BP STABLE, SBP 120S-140S. MAP>65. AFEBRILE. PATIENT CURRENTLY ON 2L NASAL CANNULA, TO KEEP SATS >92% PER DR Painter'S REQUEST. PATIENT DE-SATS WHILE SLEEPING. BOWEL SOUNDS PRESENT, 1 SMALL BM TODAY. PATIENT HAS A DECREASED APETITE, ON MECHANICAL SOFT DIET AND THIN LIQUIDS. 1:1 FEEDER. NO COMPLICATIONS WITH SWALLOWING THROUGHOUT THE DAY. 3 INCONT VOIDS AND 1 MEASURABLE VOID OF 320 ML. NO NEW SKIN ISSUES NOTED. 2 VIEW XRAY COMPLETED TODAY FOLLOW UP: CONTINUE TO MONITOR.
[2016-06-13 17:02] LABS: COLOR URINE YELLOW (YELLOW); TURBIDITY URINE 1+ (CLEAR)
[2016-06-13 17:04] LABS: BACTERIA URINE MODERATE (NEGATIVE); EPITHELIAL URINE 0-2 #/HPF (NEGATIVE); WBC CLUMPS URINE RARE (NEGATIVE)
[2016-06-14 05:26] LABS: HEMATOCRIT 30.4 % (33.0-50.0); HEMOGLOBIN 10.4 g/dL (11.0-16.0); MCH 33.2 pg (27.0-34.0); MCHC 34.2 gm/dL (32.0-36.5); MCV 97.1 fl (83.0-98.0); MPV 10.4 fl (9.4-12.4); PLATELET COUNT 151 K/uL (150-450); RBC 3.13 M/uL (3.50-5.50); RDW-CV 14.4 % (11.9-14.6)
[2016-06-14 05:39] LABS: ALBUMIN 2.2 gm/dL (3.5-5.0); ANION GAP 14.6 (10.0-19.0); CALCIUM 7.8 mg/dL (8.5-10.5); CREATININE 1.3 mg/dL (0.6-1.3); POTASSIUM 3.6 mMol/L (3.7-5.1); TOTAL PROTEIN 5.3 g/dL (6.0-8.4)
--- NOTE | 2016-06-14 05:40 | NUR ---
Significant Event: Patient alert and oriented to self and place. Does not answer time questions. Forgetful and hard of hearing. States he can see shadows, but not much else. Follows all commands and moves spontaneously. Incontinent of urine. No BM. Mechanical soft diet with thin liquids, only sips and bites for supper. Sips of tea throughout the night. VSS. No c/o pain. Crani incision covered with dressing and marty, drainage present- MD aware. Family at bedside for part of shift. Follow up: Continue to monitor. Transfer when stable.
[2016-06-14 05:44] LABS: TOTAL BILIRUBIN 0.7 mg/dL (0.0-1.5)
[2016-06-14 06:01] LABS: ABSOLUTE NEUTROPHIL CT (ANC) 9.9 K/uL (1.4-9.0); BANDED NEUTROPHIL # 0.9 K/uL (0.0-0.1); BANDED NEUTROPHILS % 8 %; LYMPHOCYTE # 0.4 K/uL (0.8-4.0); LYMPHOCYTE % 4 %; MONOCYTE # 0.3 K/uL (0.0-1.0); SEGMENTED NEUTROPHIL % 82 %
--- NOTE | 2016-06-14 08:16 | NUR ---
A - PT SCREENED D/T LOS. A/O X 2. LABS: NA+ 134, GLU 103, BUN/SCIENCE FACULTY MEMBER 23/1.3, ALB 2.2. PT W/ L) HEAD DRESSING. 1:1 FEEDER. DIET: MECH SOFT. INTAKE 0-25%. EST NEEDS: 3140-7454 KCALS, 81-98 GM PROTEIN, 1 ML/KCAL FLUIDS. D - INADEQUATE ORAL INTAKE R/T DECREASED APPETITE AEB INTAKE RECORD. I - GOAL: 50% OR BETTER INTAKE BY DISMISSAL. M/E - 1) WILL ADD ENSURE TID W/ MEALS. 2) IF TF DESIRED, REC JEVITY 1.5 TO RUN AT GOAL OF 55 ML/HR = 1980 KCALS, 84 GM PROTEIN, 1003 ML FREE H20. FLUSH W/ 150 ML H20 Q 4 HRS.
--- NOTE | 2016-06-14 15:15 | NUR ---
Significant Event: Alert and oriented to self and place, able to verbalize month but no year. 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 Hard of hearing. Transfers 2 assist, walker, gaitbelt. Equal strength bilaterall, moves all extremities. Follows commands. VSS. Afebrile. Up to chair today, bathed. Refused oral cares. Incontinent of bowel and bladder. IV to bilateral forearms, saline locked. Repositioned throughout shift. On 2L NC desats when on sleeping. Mechanical soft diet, no straw with thin liquids. 1:1 feeder. Dressing to head shadow drainage, intact. Family at bedside intermittently. NTU status. Follow up: transfer to NTU.
[2016-06-15 05:27] LABS: HEMATOCRIT 29.8 % (33.0-50.0); HEMOGLOBIN 10.2 g/dL (11.0-16.0); MCHC 34.2 gm/dL (32.0-36.5); MCV 96.4 fl (83.0-98.0); MPV 10.2 fl (9.4-12.4); PLATELET COUNT 178 K/uL (150-450); RBC 3.09 M/uL (3.50-5.50); WBC 10.1 K/uL (4.0-11.0)
[2016-06-15 05:53] LABS: ABSOLUTE NEUTROPHIL CT (ANC) 8.8 K/uL (1.4-9.0); LYMPHOCYTE # 0.3 K/uL (0.8-4.0); LYMPHOCYTE % 3 %; MONOCYTE # 0.6 K/uL (0.0-1.0); SEGMENTED NEUTROPHIL # 8.8 K/uL (1.4-9.0); SEGMENTED NEUTROPHIL % 87 %
[2016-06-15 06:44] LABS: ALBUMIN 2.2 gm/dL (3.5-5.0); ANION GAP 11.9 (10.0-19.0); CALCIUM 7.8 mg/dL (8.5-10.5); CREATININE 1.3 mg/dL (0.6-1.3); POTASSIUM 3.9 mMol/L (3.7-5.1); TOTAL BILIRUBIN 0.7 mg/dL (0.0-1.5); TOTAL PROTEIN 5.3 g/dL (6.0-8.4)
--- NOTE | 2016-06-15 07:24 | NUR ---
Significant Event:Patient Alert to self. Disoriented to time/place. Blind in both eyes. Equal strength throughout. Denies n/t. [place]. Speak into right ear, hears better. Keep sats above 92%. On room air. Lungs clear and dim. Mechanical soft diet, thin liquids. Bowel sounds active, no bm this shift. 1:1 feeder. Incontinent of bowel and bladder. Full lift with transfers. PIV's SL. Pills crushed in applesauce. Turn q 2. Follow up: Unsure of placement
--- NOTE | 2016-06-15 13:09 | NUR ---
Significant Event:PT IS ALERT TO SELF. CONFUSED BLIND. NO C/O NUMBNESS OR TINGLING. VERY [place]. SPEAK IN R) EAR PUPIL ARE SLUGGISH AND 4. CLEAR AND DIMINISHED LUNG SOUNDS ACTIVE BS. INCONTINENT OF BOWEL AND BLADDER. [place] TO LEFT SIDE HEAD. TAKE PILLS CRUSHED IN APPLE SAUCE. IV'S SL'D. NO STRAWS. 1:1 FEEDER. UP HEAVY 2A NEEDS LOTS OF CUEING. Follow up:MONITOR LOC
--- NOTE | 2016-06-15 16:25 | NUR ---
Spoke with patient's son Ralf this a.m. regarding skilled care and if family has made decision on choices. He says they have started to look, but not really finalized anything at this time. Says he was hoping to talk to the doctors about options and their opinions. Told him will need their choices by later today or Saturday at the latest so can begin contacting them. Left note on chart for Dr. Cool. Had call this afternoon fron Ralf and he says he still wants to talk to the doctors as they said he would need a higher level of care when he left here. Told him the levels of care would be inpatient rehab or skilled care. Told Ralf at this time patient would not qualify for inpatient rehab but if improves that would be an option. Talked to him again about skilled care and options. He says pending talking to the Drs. their preferences are 1. return to [facility], 2 [facility] and 3 [facility]. He says they really would like him to return to [facility]. Told him on Saturday can contact [facility] and have them come assess patient. Based on how patient is today, I would not anticipate they would think he is ready to come back to [facility] unless family wanted to hire additional care givers, since patient is a heavy 2 assist. Told him I will contact the [place] and [place] on Saturday. Will follow.
--- NOTE | 2016-06-16 04:31 | NUR ---
Significant Event: Alert to month, at times year. Unsure of location, able to state and age. Pupils 4mm, non-reactive. Moves spontaneously and on command, equal moderate strength throughout. CAM positive. Visual hallucinations, grabs at objects. Systolic 130-140's, HR 70's. L.S. clear and diminished throughout on RA. B.S. active, one small incontinent BM with multiple incontinent voids. PIV R) forearm + L) forearm both SL'd. Takes medications crushed in applesauce. HOB flat to ten degrees, bed rest for now, can have HOB elevated for meals, bathroom assistance and medications. To keep SBP <150, no prn's needed throughout shift. Turn Q2H, area between buttocks non-blanchable, aloe vesta applied. Follow up: Keep SBP <150, monitor neuro status, turn Q2H, plan for follow-up head CT 06/17/16.
--- NOTE | 2016-06-16 16:50 | NUR ---
ULTRA HIGH FALL RISK last fall 05/05/16 Significant Event: A/O X1, confused, rambling incoherently, hallucinating. fair appetite, 1:1 feeder, restless in bed, wiggles off wedge after repositioned, incontinent of bowel and bladder, aloe vesta to coccxy/buttocks purple area, saline lock L)FA and R)FA. son @ bedside, awake the entire shift, STRICT BEDREST/FLAT except for meds and meals. Follow up: monitor
--- NOTE | 2016-06-17 03:58 | NUR ---
Significant Event: Patient alert, oriented to person only. VSS. Patient had cough with increased amounts of thick sputum. RT called and orders recieved ok to NT suction. Patient with bloody nose and oral suctioned. Moderate amounts of thick sputum suctioned. Patient has rested well throughout shift. Continues to be confused. Follow up: continue to monitor
[2016-06-17 05:15] LABS: BASOPHIL # 0.1 K/uL (0.0-0.2); BASOPHIL % 0.4 %; EOSINOPHIL # 0.2 K/uL (0.0-0.5); EOSINOPHIL % 1.3 %; HEMATOCRIT 30.6 % (33.0-50.0); HEMOGLOBIN 10.5 g/dL (11.0-16.0); IMMATURE GRANULOCYTE # 0.1 K/uL (0.0-0.3); IMMATURE GRANULOCYTE % 0.9 %; LYMPHOCYTE # 0.4 K/uL (0.8-4.0); LYMPHOCYTE % 2.9 %; MCH 33.2 pg (27.0-34.0); MCHC 34.3 gm/dL (32.0-36.5); MCV 96.8 fl (83.0-98.0); MONOCYTE # 0.9 K/uL (0.0-1.0); MONOCYTE % 7.1 %; MPV 9.8 fl (9.4-12.4); NEUTROPHIL # (ANC) 10.7 K/uL (1.4-9.0); NEUTROPHIL % 87.4 %; NRBC % 0 /100WBC (0-0.00); RBC 3.16 M/uL (3.50-5.50); RDW-CV 14.5 % (11.9-14.6); WBC 12.2 K/uL (4.0-11.0)
[2016-06-17 05:19] LABS: PLATELET COUNT 232 K/uL (150-450)
[2016-06-17 05:27] LABS: ALBUMIN 2.3 gm/dL (3.5-5.0); ANION GAP 14.1 (10.0-19.0); CALCIUM 8.2 mg/dL (8.5-10.5); CREATININE 1.5 mg/dL (0.6-1.3); POTASSIUM 4.1 mMol/L (3.7-5.1); TOTAL BILIRUBIN 0.6 mg/dL (0.0-1.5); TOTAL PROTEIN 5.5 g/dL (6.0-8.4)
--- NOTE | 2016-06-17 16:15 | NUR ---
ULTRA HIGH FALL RISK last fall 05/05/16 Significant Event: A/O X1, able to carry on appropriate conversation, follows commands/cooperative, full lift to chair this afternoon, incontinent of bowel & bladder. ate 50% of lunch 1:1 feeder, o2 1l/nc, guaifenisen for phlegm in throat/wet sounding voice at times, strong occassional non-productive cough, marty D/I to head incision, buttocks non-blanchable area -aloe vesta applied with depend changes, saline lock L)FA, son @ bedside for portion of shift, Follow up: discharge plan for CT scan Wed or . - possible placement late in the week. turn q2hr,
--- NOTE | 2016-06-18 04:37 | NUR ---
Significant Event: PATIENT IS ALERT AND ORIENTED TO SELF. ANSWERS APPROPRIATELY. FULL LIFT. INCONTINENT OF BOWEL AND BLADDER. FEEDER. O2 PER NC AT 2LPM. HAS BEEN REQUIRING PRN SUCTIONING. CRUSHING MEDS IN APPLESAUCE. TURN Q2H. VERY [place]. RIGHT EAR IS BETTER THAN LEFT. PATIENT IS ALSO BLIND. HELPS TO TELL PATIENT WHAT YOU ARE DOING PRIOR TO. Follow up:
[2016-06-18 04:42] LABS: HEMATOCRIT 30.5 % (33.0-50.0); HEMOGLOBIN 10.2 g/dL (11.0-16.0); MCH 32.6 pg (27.0-34.0); MCHC 33.4 gm/dL (32.0-36.5); MCV 97.4 fl (83.0-98.0); MPV 9.9 fl (9.4-12.4); PLATELET COUNT 260 K/uL (150-450); RBC 3.13 M/uL (3.50-5.50); RDW-CV 14.6 % (11.9-14.6); WBC 11.4 K/uL (4.0-11.0)
[2016-06-18 05:00] LABS: ALBUMIN 2.3 gm/dL (3.5-5.0); ANION GAP 11.9 (10.0-19.0); CALCIUM 8.1 mg/dL (8.5-10.5); CREATININE 1.4 mg/dL (0.6-1.3); POTASSIUM 3.9 mMol/L (3.7-5.1); TOTAL BILIRUBIN 0.5 mg/dL (0.0-1.5); TOTAL PROTEIN 5.6 g/dL (6.0-8.4)
[2016-06-18 06:20] LABS: ABSOLUTE NEUTROPHIL CT (ANC) 10.4 K/uL (1.4-9.0); BANDED NEUTROPHIL # 0.1 K/uL (0.0-0.1); BANDED NEUTROPHILS % 1 %; LYMPHOCYTE # 0.5 K/uL (0.8-4.0); LYMPHOCYTE % 4 %; MONOCYTE # 0.3 K/uL (0.0-1.0); SEGMENTED NEUTROPHIL # 10.3 K/uL (1.4-9.0); SEGMENTED NEUTROPHIL % 90 %
--- NOTE | 2016-06-18 08:00 | NUR ---
Late note entry due to being locked out of the computer. Pt. did recieve a bed bath along with a shave and hair wash. Linens changed.
--- NOTE | 2016-06-18 12:41 | NUR ---
A - NUT F/U. A/O TO SELF. 1:1 @ MEALS - NEEDS FED. IS DRINKING ENSURE. EDEMA. LABS: GLU 118, BUN/CR 26/1.4, ALB 2.3, WBC 11.4 MEDS: ROCEPHIN, PROTONIX, PEPCID, NAUSEA DIET: MECH-SOFT. INTAKE: REF-75% ENSURE TID NEEDS: 3885-9659 KCAL, 81-98 G PRO D - INADEQUATE NUTRIENT INTAKE R/T DECREASED APPETITE AEB INTAKE RECORD. I - GOAL FOR INTAKE 50-75% BY NEXT ASSESSMENT. WILL ADD ENSURE PUDDING @ L&D M/E - WILL MONITOR INTAKE F/U IN 3-5 DAYS.
--- NOTE | 2016-06-18 13:45 | NUR ---
Patient remains 2 assist. Contacted [facility] and spoke with Yelena. Information faxed. Several calls with Lori SLADE at [facility]. Answered her quesitions. Await Levan's decision. Will contact [facility] in the a.m. to discuss with them. Anticipate transfer to [facility] on Sat. Will follow.
--- NOTE | 2016-06-18 17:25 | NUR ---
Significant Event:PT IS ALERT TO SELF. PUPIL NONREACTIVE. [place]. TALK ON RIGHT SIDE. NO C/O NUMBNESS OR TINGLING. CLEAR AND DIMINISHED LUNG SOUNDS. ON RA. ACTIVE BS. BM TODAY. REDNESS NOTED TO COCCYX. MEDS CRUSHED IN APPLE SAUCE. UP 2 ASSIST PIVOT. NEW IV IN R) WRIST. Follow up:[facility] SATURDAY?
--- NOTE | 2016-06-19 05:41 | NUR ---
Significant Event: Patient has been alert and oriented x3-forgetful. VSS. Has followed all commands. Denies pain. Denies DUFFY. Denies N/T. Pupils are 4mm and nonreactive. [place]. Did have a hard time staying asleep. Murmur. Edema to lower extremities. Room air. Productive cough. Mechanical soft diet with thin liquids. Takes pills crushed with applesauce. Bowels are active x4- Last BM 06/19. Did not AMB this shift- 2A and pivot. 1:1 feeder. PIV in right wrist-sl'd. SBP 120's. Follow up: Repo q2h. Aloe to bottom. CT on sat. Plan for SNF when ready.
--- NOTE | 2016-06-19 15:54 | NUR ---
Significant Event:PT IS ALERT TO SELF AND MONTH. FOLLOWS COMMANDS AT TIMES. NO C/O NUMBNESS OR TINGLING. PUPILS NONREACTIVE. LUNGS SOUNDS ARE SLIGHTLY COURSE IN UPPER LOBE AND CLEAR AND DIMINISHED IN LOWER LOBES. INCONTINENT. LG BM TODAY. MEDS CRUSHED IN APPLE SAUCE. 2A PIVOT TO FULL LIFT. R) WRIST SL'D. Follow up:ALARMS
--- NOTE | 2016-06-19 16:30 | NUR ---
Vi from [facility] spoke with my enterprise manager Concha and had several questions. Called and spoke with Dr. Cool to clarify some of Vi's questions. Called and spoke with Vi and attempted to answer her questions. Told her of conversation with Dr. Cool and he said she can call and talk to him if she wants to. She would like Dr. 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 Left note on front of patient's chart for Dr. Cool. Vi has requested PASSR be done again. Will follow up with Vi tomorrow for final decision regarding if will accept patient or not. Will follow.
--- NOTE | 2016-06-20 07:59 | NUR ---
Significant Event: Patient has been alert and oriented x3 to alert to self throughout the shift. VSS. Does follow some commands. Restless. Forgetful. Confused-. Pupils are 4mm and nonreactive. Blind. [place]. Murmur. 1L of O2 per nasal cannula. Sputum and thick secretions-does have a hard time clearing throat at times. Incont of bowel/bladder-last BM 06/20-bowels are active. Mechanical soft diet-thin liquids. Pills crushed and taken with applesauce. 2A full lift-turn q2h. Left lateral surgical incision-with marty. Does have a history of dementia. Follow up: CT this AM.
[2016-06-20 09:48] LABS: HEMATOCRIT 30.8 % (33.0-50.0); HEMOGLOBIN 10.4 g/dL (11.0-16.0); MCH 32.7 pg (27.0-34.0); MCHC 33.8 gm/dL (32.0-36.5); MCV 96.9 fl (83.0-98.0); MPV 9.3 fl (9.4-12.4); RBC 3.18 M/uL (3.50-5.50); RDW-CV 14.1 % (11.9-14.6); WBC 11.2 K/uL (4.0-11.0)
[2016-06-20 09:53] LABS: PLATELET COUNT 322 K/uL (150-450)
[2016-06-20 10:07] LABS: ALBUMIN 2.4 gm/dL (3.5-5.0); ANION GAP 11.2 (10.0-19.0); CREATININE 1.5 mg/dL (0.6-1.3); POTASSIUM 4.2 mMol/L (3.7-5.1); TOTAL BILIRUBIN 0.6 mg/dL (0.0-1.5); TOTAL PROTEIN 5.7 g/dL (6.0-8.4)
[2016-06-20 10:36] LABS: ABSOLUTE NEUTROPHIL CT (ANC) 10.2 K/uL (1.4-9.0); BANDED NEUTROPHIL # 0.3 K/uL (0.0-0.1); BANDED NEUTROPHILS % 3 %; LYMPHOCYTE # 0.3 K/uL (0.8-4.0); LYMPHOCYTE % 3 %; MONOCYTE # 0.3 K/uL (0.0-1.0); SEGMENTED NEUTROPHIL # 9.9 K/uL (1.4-9.0); SEGMENTED NEUTROPHIL % 88 %
--- NOTE | 2016-06-20 14:57 | NUR ---
Faxed progress notes and new PASSR to Vi at [facility] this a.m. Left [facility] for Vi at [facility] regarding faxed information. Left [facility] for Niya at [facility]. Call back from Niya and they do have beds at [facility] and can fax information. Talked with patient's son Ralf and updated him on referral to [facility] and that [facility] does have a bed. He says [facility] is closer for him but he is okay with proceeding with a referral to [facility] also. He says Dr. Osuna and Dr. Cool have indicated patient will be ready tomorrow. He asks what will happen then. Explained to him at this time I do not have a safe discharge plan and he will not be discharged until we have a safe plan. Told him I will make a referral to [facility]. Will call Vi at [facility] if I don't hear from her by midafternoon. He says that sounds good. He says his first choice remains back to [place], but he knows that is not going to happen. Talked with Marci AVELAR and she says patient failed his MBS and is aspirating. Marci called and udpated Dr. Cool. Marci told Ralf and myself that Dr. Cool has ordered for palliative care. Ralf says he and his sister are co POAs and he has called her and she is packing to come here. He anticipates she will get here around 1900 today. Told him when palliative care comes to see him he can tell her he would like to set up a meeting for [facility] or tomorrow when his sister gets here. Will follow.
--- NOTE | 2016-06-20 15:04 | NUR ---
Significant Event: VSS. PATIENT ALERT TO SELF AND PLACE THIS AM, LAST ASSESSMENT WAS ORIENTED X 3 BUT STILL FORGETFUL. FOLLOWS COMMANDS. DENIES NUMBNESS/TINGLING. MODERATE STRENGTH BUT WEAK WITH AMBULATION. PATIENT IS BLIND AND VERY HARD OF HEARING. TRACE EDEMA TO LOWER EXTREMITIES. LUNGS COARSE ALL SHIFT, WAS ON 1-2 LITERS THIS AM BUT NOW ROOM AIR. UPON START OF MY SHIFT PATIENT COUGHING ALONG WITH THE COARSE LUNGS. DR TOBIN NOTIFIED AND CHEST XRAY WELL SPEECH CONSULT DONE. HAD MODIFIED SWALLOW STUDY THEN , WHICH HE DID NOT PASS. PATIENT CURRENTLY NPO. IV IN RT WRIST, CONTINUES ON INTERMITTENT ANTIBIOTICS. UP WITH 2 ASSIST PIVOT. PALLIATIVE CONSULT NOW, LUDWIG HERE AT THIS TIME TO SEE PATIENT AND SPEAK WITH SON REGARDING CARES. INCONTINENT. ALARMS ON FOR SAFETY. AWAITING PLACEMENT. Follow up: NEURO STATUS. NUTRITION? ALARMS.
[2016-06-21 04:10] LABS: HEMATOCRIT 30.2 % (33.0-50.0); MCH 32.7 pg (27.0-34.0); MCHC 33.1 gm/dL (32.0-36.5); MCV 98.7 fl (83.0-98.0); MPV 9.7 fl (9.4-12.4); PLATELET COUNT 326 K/uL (150-450); RBC 3.06 M/uL (3.50-5.50); RDW-CV 14.5 % (11.9-14.6); WBC 15.3 K/uL (4.0-11.0)
[2016-06-21 04:32] LABS: ALBUMIN 2.4 gm/dL (3.5-5.0); ANION GAP 13.3 (10.0-19.0); CALCIUM 7.9 mg/dL (8.5-10.5); CREATININE 1.5 mg/dL (0.6-1.3); POTASSIUM 4.3 mMol/L (3.7-5.1); TOTAL BILIRUBIN 0.5 mg/dL (0.0-1.5); TOTAL PROTEIN 5.5 g/dL (6.0-8.4)
[2016-06-21 05:38] LABS: ABSOLUTE NEUTROPHIL CT (ANC) 14.1 K/uL (1.4-9.0); BANDED NEUTROPHIL # 1.1 K/uL (0.0-0.1); BANDED NEUTROPHILS % 7 %; LYMPHOCYTE # 0.6 K/uL (0.8-4.0); LYMPHOCYTE % 4 %; MONOCYTE # 0.5 K/uL (0.0-1.0); SEGMENTED NEUTROPHIL % 85 %
--- NOTE | 2016-06-21 06:53 | NUR ---
Significant Event: Patient A/O to self and place. Very drowsy. Patient is blind bilaterally, can see some light. Moves all extremities spontaneously and to command with generalized weakness. Denies N/T. Afebrile. Lungs coarse throughout. Productive cough, needs suctioned. On 1 L of O2. Strict NPO this shift. BM this shift. Incontinent of both bowel and bladder. Pivot 2 assist/Total lift. IV to left FA SL. No complaints of pain this shift. Family at bedside. Follow up: Palliative care on board. Suction PRN. Turn q2.
--- NOTE | 2016-06-21 11:15 | NUR ---
Spoke with patient's son, Ralf and a daughter. They have talked with palliative care, the doctors, and their dad and they are going to go ahead with the PEG. They ask about [facility] and I told them I updated Vi and faxed her an update and will update her today regarding the PEG. Asked son if he met with [facility], he said he has not but plans to go up there today. Told him since they have decided on the PEG he will need to ask [facility] if they can do the tube feedings. Told him I don't think the private duty staff will do it. Ralf says [facility] staff were here earlier today and assessed him and are willing to consider him, but their beds are filling up fast. Son says his preference is still [facility], then [facility] and then [facility]. Called Vi at [facility] and had to leave a [facility]. Faxed update to Vi at [facility]. Will follow.
--- NOTE | 2016-06-21 16:08 | NUR ---
Significant Event: PT ALERT TO SELF/PLACE; DOES KNOW THE MONTH AT TIMES. FOLLOWS COMMANDS. PT IS BLIND. VERY HARD OF HEARING; PT'S FAMILY BOUGHT HIM A R)HEARING AIDE TODAY, SO PT HEARS MUCH BETTER. TRANSFERS WITH 2-ASSIST/PIVOT WITH THERAPY; DID AMBULATE IN THE ROOM. FULL LIFT PER NURSING. SAT IN THE CHAIR FOR ABOUT 5 HOURS AND TOLERATED WELL. TACHYPNEIC WITH RATES IN THE UPPER 20'S; OTHER VITAL SIGNS STABLE. ON ROOM AIR. PRN ORAL SUCTIONING DUE TO VERY WEAK GURGLY COUGH. LUNG SOUNDS COARSE THROUGHOUT. INCONTINENT OF URINE; DID USE URINAL X1. IV TO L)FA SALINE LOCKED. HAS BEEN STRICT NPO THIS SHIFT. PALLIATIVE CARE NURSE (LUDWIG) SPOKE WITH THE FAMILY REGARDING PLAN OF CARE AND THE FAMILY WANTED A PEG TUBE PLACED. PT WAS TAKEN TO ENDO AT 1430; HAS NOT RETURNED TO THE FLOOR YET. Follow up: POST-OP ORDERS; CONTINUE TO MONITOR.
--- NOTE | 2016-06-22 01:51 | NUR ---
Significant Event:Patient Alert to self, . Month at times. Pupils non-reactive. Patient is blind in bilateral eyes, but can see some light. Denies N/T. Denies pain. Moves all extremities spontaneously and to command with equal strength bilaterally. Afebrile. Lungs coarse throughout on 0.5 L of 02. Spontaneous weak cough, PRN suctioning. PEG tube to gravity. Abdominal binder in place. Incontinent to bowel and bladder. Continent of bladder at times. VSS. MENOMINEE. Hearing aid to the right ear in place. PIV to left FA SL with intermittent antibiotics. Turn q 2. 2 assist pivot to transfer. Follow up: Possibly starting tube feeding today.
[2016-06-22 04:18] LABS: HEMATOCRIT 30.7 % (33.0-50.0); HEMOGLOBIN 10.1 g/dL (11.0-16.0); MCH 32.9 pg (27.0-34.0); MCHC 32.9 gm/dL (32.0-36.5); MPV 9.4 fl (9.4-12.4); PLATELET COUNT 331 K/uL (150-450); RBC 3.07 M/uL (3.50-5.50); RDW-CV 14.6 % (11.9-14.6)
[2016-06-22 04:22] LABS: WBC 21.8 K/uL (4.0-11.0)
[2016-06-22 04:32] LABS: CALCIUM 7.9 mg/dL (8.5-10.5); CREATININE 1.5 mg/dL (0.6-1.3); POTASSIUM 4.4 mMol/L (3.7-5.1)
[2016-06-22 04:35] LABS: ANION GAP 15.4 (10.0-19.0)
[2016-06-22 06:06] LABS: ABSOLUTE NEUTROPHIL CT (ANC) 20.1 K/uL (1.4-9.0); BANDED NEUTROPHIL # 0.4 K/uL (0.0-0.1); BANDED NEUTROPHILS % 2 %; LYMPHOCYTE # 0.2 K/uL (0.8-4.0); LYMPHOCYTE % 1 %; MONOCYTE # 1.3 K/uL (0.0-1.0); SEGMENTED NEUTROPHIL # 19.6 K/uL (1.4-9.0); SEGMENTED NEUTROPHIL % 90 %
--- NOTE | 2016-06-22 11:53 | NUR ---
A - CONSULT RECEIVED FOR TF RECS. PEG PLACED YESTERDAY. MBS REC NPO. 1+ EDEMA. LABS: NA 146, GLU 108, BUN/CR 27/1.5, ALB 2.4, CRP 18.1, CRP 21.8 MEDS: UNASYN, PEPCID, NAUSEA DIET: NPO NEEDS: 0213-4084 KCAL, 81-98 G PRO D - DIFFICULTY SWALLOWING R/T NEUROMUSCULAR DYSFUNCTION AEB MBD RESULTS, NEED FOR ENTERAL NUTRITION. I - GOAL FOR ENTERAL NUTRITION TOLERANCE. REC JEVITY 1.5 @ 250 ML W/ 90 ML BEFORE & AFTER EACH FEED 5X/DAY. M/E - WILL MONITOR TF F/U IN 2-3 DAYS
--- NOTE | 2016-06-22 14:15 | NUR ---
Called and spoke with Lori at [facility] and updated her. She would like update from the w/e faxed to her early Saturday a.m. She and her SW will come assess patient Saturday a.m. about 09. She says she is not comfortable ordered the tube feeding until she knows he will tolerate it. She says it usually takes them 48hrs to get tube feeding supplies. Did tell Lori patient probably will be ready for transfer on Saturday. Updated patient's daughter regarding above. She says she or one of her siblings will be here Saturday a.m. when [place] comes to assess. Will follow.
--- NOTE | 2016-06-22 17:04 | NUR ---
Significant Event: Patient disoriented to time throughout shift. This afternoon patient was only oriented to person, thought he was 'out on the road'. Pupils 4mm, brisk. Very hard of hearing. Visually impaired but states he can see things at times. VSS, on 1L O2. Lung sounds coarse, suctioning done with yankauer. Order to keep O2 on at all times for right now. Murmur heard upon auscultation of heart. Patient voids per urinal, is incontinent at times. PEG tube clamped. Started bolus feedings with H2O flushes. Abdominal binder in place. Venous staining to lower legs. Surgical incision to left head, marty removed today by . IV to L) FA, saline locked with intermittent antibiotics. Family at bedside. Follow up: VS/neuros q 4 hours. Up with 2PA or full lift. Tube feeds.
[2016-06-23 05:28] LABS: HEMATOCRIT 32.3 % (33.0-50.0); HEMOGLOBIN 10.5 g/dL (11.0-16.0); MCH 32.3 pg (27.0-34.0); MCHC 32.5 gm/dL (32.0-36.5); MCV 99.4 fl (83.0-98.0); MPV 9.4 fl (9.4-12.4); PLATELET COUNT 340 K/uL (150-450); RBC 3.25 M/uL (3.50-5.50); RDW-CV 14.4 % (11.9-14.6); WBC 14.3 K/uL (4.0-11.0)
[2016-06-23 05:38] LABS: CALCIUM 8.3 mg/dL (8.5-10.5); CREATININE 1.5 mg/dL (0.6-1.3); POTASSIUM 3.8 mMol/L (3.7-5.1)
[2016-06-23 05:40] LABS: ANION GAP 13.8 (10.0-19.0)
[2016-06-23 06:41] LABS: ABSOLUTE NEUTROPHIL CT (ANC) 13.2 K/uL (1.4-9.0); LYMPHOCYTE # 0.4 K/uL (0.8-4.0); LYMPHOCYTE % 3 %; MONOCYTE # 0.7 K/uL (0.0-1.0); SEGMENTED NEUTROPHIL # 13.2 K/uL (1.4-9.0); SEGMENTED NEUTROPHIL % 92 %
--- NOTE | 2016-06-23 08:04 | NUR ---
PT CONTINUES TO BE CONFUSED, BELIEVES THAT HE IS ON A ROAD TRIP. PRN ZYPREXA GIVEN WITH MINIMAL EFFECT. PT HAS NOT SLEPT THIS SHIFT. MOVES ALL EXTREMITIES SPONTANEOULSY. DIFFICULTY COMMUNICATING DUE TO HARD OF HEARING. REMAINS ON 1LNC, SATS MID-HIGH 90S. PT WILL REMOVE O2 AT TIMES; SATS REMAIN 92 AND HIGHER IF PT IS ALERT. LUNGS COARSE, SECREATIONS THINNING. TOLERATING TF WELL, ADVANCED TO 250 ML/FEED WITH MINIMAL RESIDUALS. HUMERA MERCADO RN
--- NOTE | 2016-06-23 19:44 | NUR ---
Significant Event: Patient oriented to self only. Hallucinations noted throughout shift. Pupils 4mm, nonreactive. 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 Patient very hard of hearing. VSS, on 1L O2. Orders to keep O2 on at all times for now. Lung sounds coarse throughout. Heart murmur heard upon auscultation. Frequent suctioning per aliskauer needed due to secretions today. Patient incontinent of bowels and bladder throughout shift, brief on. PEG tube clamped, receiving bolus tube feeds and water flushes. Tolerating well. Abdominal binder on. Venous staining noted to lower legs. Skin tear to L) funes, covered with vaseline gauze and kerlix. Surgical incision to L) head, marty removed yesterday. IV to L) FA, saline locked with intermittent antibiotics. Family at bedside. Follow up: VS/neuros q 4 hours. Up with full lift. NPO, tube feeds.
[2016-06-24 05:12] LABS: BASOPHIL # 0.1 K/uL (0.0-0.2); BASOPHIL % 0.4 %; EOSINOPHIL # 0.2 K/uL (0.0-0.5); EOSINOPHIL % 1.3 %; IMMATURE GRANULOCYTE # 0.1 K/uL (0.0-0.3); IMMATURE GRANULOCYTE % 0.7 %; LYMPHOCYTE # 0.6 K/uL (0.8-4.0); LYMPHOCYTE % 5.1 %; MCH 32.6 pg (27.0-34.0); MCHC 32.3 gm/dL (32.0-36.5); MONOCYTE # 0.7 K/uL (0.0-1.0); MONOCYTE % 5.9 %; MPV 9.3 fl (9.4-12.4); NEUTROPHIL # (ANC) 9.9 K/uL (1.4-9.0); NEUTROPHIL % 86.6 %; NRBC % 0 /100WBC (0-0.00); PLATELET COUNT 328 K/uL (150-450); RBC 3.07 M/uL (3.50-5.50); RDW-CV 14.6 % (11.9-14.6); WBC 11.5 K/uL (4.0-11.0)
[2016-06-24 05:23] LABS: ALBUMIN 2.4 gm/dL (3.5-5.0); CALCIUM 8.2 mg/dL (8.5-10.5); CREATININE 1.4 mg/dL (0.6-1.3); POTASSIUM 3.9 mMol/L (3.7-5.1); TOTAL BILIRUBIN 0.5 mg/dL (0.0-1.5); TOTAL PROTEIN 5.6 g/dL (6.0-8.4)
[2016-06-24 05:24] LABS: ANION GAP 12.9 (10.0-19.0)
--- NOTE | 2016-06-24 05:38 | NUR ---
Significant Event: Patient alert, oriented to person only. Becomes aggitated occasionally. Moves all extremeties to command and spontaneously with equal strength. VSS on 1L/NC. Lung sounds clear and diminished throughout and slightly coarse occasionally. Frequently suctioning secretions from back of throat, white and thick. PEG tube intact with abdominal binder for protection. Tolerating tube feeding well, 70 max residual. Smear bm this shift. Incontinent of urine x2. No new or worsening skin issues. Afebrile. PIV SL'D except for intermittent abx. Follow up: Continue.
--- NOTE | 2016-06-24 19:24 | NUR ---
Significant Event: Patient alert to self only. Not as agitated today. Slept on and off. Pupils 4mm, nonreactive. Patient very hard of hearing. Hypertensive, all other VSS on 3L O2. Lung sounds coarse throughout. Suctioned frequently for large amount of white, thick secretions. Atropine drops at patient's bedside. Very weak cough noted. Patient incontinent of bladder and bowels, moderate BM this morning. Brief on. PEG tube patent to abdomen, surgical dressing in place. Sodium was 150. Tube feeds changed to continuous feeds at 60 mL/hr and increased H20 flushes to 250 mL q 4 hours. Venous staining noted to legs. Skin tear to L) funes, vaseline gauze and kerlix in place. Old surgical incision site to L) head, open to air. IV to L) FA, saline locked with intermittent antibiotics. Follow up: VS/neuros q 4 hours. Up with full lift. NPO, tube feeds.
[2016-06-25 05:24] LABS: BASOPHIL % 0.3 %; EOSINOPHIL # 0.2 K/uL (0.0-0.5); EOSINOPHIL % 1.8 %; HEMOGLOBIN 9.8 g/dL (11.0-16.0); IMMATURE GRANULOCYTE # 0.1 K/uL (0.0-0.3); IMMATURE GRANULOCYTE % 1.1 %; LYMPHOCYTE # 0.6 K/uL (0.8-4.0); LYMPHOCYTE % 5.5 %; MCH 32.5 pg (27.0-34.0); MCHC 31.6 gm/dL (32.0-36.5); MCV 102.6 fl (83.0-98.0); MONOCYTE # 0.7 K/uL (0.0-1.0); MONOCYTE % 6.3 %; MPV 9.5 fl (9.4-12.4); NEUTROPHIL # (ANC) 8.7 K/uL (1.4-9.0); NRBC % 0 /100WBC (0-0.00); PLATELET COUNT 282 K/uL (150-450); RBC 3.02 M/uL (3.50-5.50); RDW-CV 14.6 % (11.9-14.6); WBC 10.3 K/uL (4.0-11.0)
--- NOTE | 2016-06-25 05:29 | NUR ---
NEURO: Alert to self. Blind in left eye, can see shadows with right. Left ear deaf, right ear very [place]. CARDIO: Tele. WNL. RESP: Coarse. Leave O2 on at all times. Currently on 2 ltr. Suctioned multiple times this shift, patient sounds much better than at beginning of shift. Atropine drops PRN- used x 1 this shift. GI/: NPO. Keep HOB at > 30 d/t continuous peg tube feeding. Jevity 1.5 @ 60/hr. 250ml flushes Q4H. Abdominal binder on to keep patient from pulling at tube. Incontinent of bladder and bowel. Lg BM this shift. SKIN: Venous staining BLE. Lef funes dressing to skin tear CDI. IV: IV L FA. Intermittant antibiotics. ACTIVITY: Turn Q2. Lift. PAIN: No c/o pain this shift. PLAN: Dicharge when appropriate. Possible hospice.
[2016-06-25 05:39] LABS: ALBUMIN 2.1 gm/dL (3.5-5.0); CALCIUM 7.9 mg/dL (8.5-10.5); CREATININE 1.3 mg/dL (0.6-1.3); TOTAL BILIRUBIN 0.4 mg/dL (0.0-1.5); TOTAL PROTEIN 5.2 g/dL (6.0-8.4)
[2016-06-25 05:43] LABS: ANION GAP 12.6 (10.0-19.0); POTASSIUM 4.6 mMol/L (3.7-5.1)
--- NOTE | 2016-06-25 11:43 | NUR ---
A - NUT F/U. PEG PLACED. TF CHANGED FROM BOLUS TO CONTINUOUS OVER THE WEEKEND. 1+ EDEMA. LABS: NA 148, GLU 168, ALB 2.1, CRP 4.96 MEDS: AUGMENTIN, LASIX, ALDACTONE, PEPCID, NAUSEA DIET: JEVITY 1.5 @ 60 ML/HR VIA PEG W/ 250 ML WATER Q4 HRS. MIN RESIDUALS. PROVIDES 2160 KCAL, 92 G PRO, 1094 ML FREE WATER (+FLUSH) NEEDS: 7973-4635 KCAL, 81-98 G PRO D - DIFFICULTY SWALLOWING R/T NEUROMUSCULAR DYSFUNCTION AEB NEED FOR LONG-TERM ENTERAL NUTRITION. I - GOAL FOR CONTINUED ENTERAL NUTRITION TOLERANCE. M/E - WILL MONITOR POC, TF F/U IN 2-4 DAYS.
--- NOTE | 2016-06-25 14:57 | NUR ---
Significant Event: vss. alert to person. patient is very hard of hearing does not help to speak loud better to speak lower and in right ear. blind in both eyes can see shadows in one eye. up with two assist. tube feeding per peg at 60ml per hour flushes q 4 hours. tollerates well. all meds per peg. did not need to suction this shift. up in chair and repositioned in chair. on room air. sitting at 96%. Follow up: monitor
--- NOTE | 2016-06-25 15:45 | NUR ---
Faxed clinical update to Lori at [facility] this a.m.. Lori and Yelena here around 1000 to assess patient and meet with family. Talked to Lori this afternoon on the phone and they will accept patient, she just doesn't know when. She says she has ordered the tube feeding and supplies and is waiting to hear back from their supplier. She is not sure if supplies will be delivered tomorrow or Saturday. She says she has to hear back from the supplier before she knows when she can accept patient. Note on chart for Dr. Cool. Will follow.
--- NOTE | 2016-06-26 04:25 | NUR ---
Significant Event: Alert to self. Moves all extremities spontaneously and to command. VSS. Suctioned x5 this shift; patient tolerated well. Lungs coarse. Q2 turns. Up 2 assist. PEG tube running jevity 1.5 at 60ml/hr with 240ml flushes q4 hour. Incontient. Large BM this shift. Up 2 assist. On room air sitting at 95%. Left forearm IV saline locked. Left funes dressing to skin tear c/d/i. Old surgical incision to left head. Follow up: SNF when tube feeding supplies arrive.
[2016-06-26 04:33] LABS: BASOPHIL # 0.1 K/uL (0.0-0.2); BASOPHIL % 0.4 %; EOSINOPHIL # 0.2 K/uL (0.0-0.5); EOSINOPHIL % 1.7 %; HEMATOCRIT 31.6 % (33.0-50.0); HEMOGLOBIN 10.2 g/dL (11.0-16.0); IMMATURE GRANULOCYTE # 0.1 K/uL (0.0-0.3); LYMPHOCYTE # 0.5 K/uL (0.8-4.0); LYMPHOCYTE % 4.5 %; MCH 32.7 pg (27.0-34.0); MCHC 32.3 gm/dL (32.0-36.5); MCV 101.3 fl (83.0-98.0); MONOCYTE # 0.6 K/uL (0.0-1.0); MONOCYTE % 4.8 %; MPV 9.6 fl (9.4-12.4); NEUTROPHIL # (ANC) 10.5 K/uL (1.4-9.0); NEUTROPHIL % 87.6 %; NRBC % 0 /100WBC (0-0.00); PLATELET COUNT 265 K/uL (150-450); RBC 3.12 M/uL (3.50-5.50); RDW-CV 14.4 % (11.9-14.6)
[2016-06-26 04:51] LABS: ALBUMIN 2.2 gm/dL (3.5-5.0); ANION GAP 12.5 (10.0-19.0); CALCIUM 7.9 mg/dL (8.5-10.5); CREATININE 1.3 mg/dL (0.6-1.3); POTASSIUM 4.5 mMol/L (3.7-5.1); TOTAL PROTEIN 5.4 g/dL (6.0-8.4)
[2016-06-26 04:53] LABS: TOTAL BILIRUBIN 0.5 mg/dL (0.0-1.5)
--- NOTE | 2016-06-26 10:43 | NUR ---
Significant Event: a/o to person. VERY [place]. Blind in both eyes- can see shadows. Cogitively impaired. equal strength throughout. NPO. Peg tube with jevity at 60ml/hr and 240ml water flushes Q 4 hours. IV to left forearm saline locked. Skin tear to left funes open to air. Surgical incision to left side of head open to air. Lung sounds coarse. Harsh nonproductive cough. Transfers with walker/gait belt and two assist or full lift. Peg tube insertion site cleansed and new dsg applied with AM bath. No redness/drainage around insertion site. Plan- SNF when they get their tube feeding supplies.
--- NOTE | 2016-06-26 17:14 | NUR ---
Spoke with Lori at [facility] this a.m. and they will be able to accept patient tomorrow. They will call back with a time. Spoke with patient's son, Ralf and updated him. Call from Yelena at [facility] and they will pick patient up tomorrow at 1430. Called and updated patient's son Ralf. Talked with patient's nurse and charge nurse. Plan for patient to transfer to [facility] tomorrow at 1430. Will follow.
--- NOTE | 2016-06-27 02:37 | NUR ---
Significant Event: Patient alert and oriented to self. Moves all extremities spontaneously and occasionally to command. VSS. On room air most of night. Lungs coarse. Gurgling noted with intake and exhale of breaths - patient refused suctioning most of time. Peg tube running jevity 1.5 at 60ml/hr with 240ml flushes q4 hour. Residuals ranged from 10-75. Q2 wheeler. Up 2assist pivot/full lift. Incontinent of bowel and urine - large BM this shift. Left forearm IV saline locked. Old surgical incision to left head open to air. Skin tear to left funes open to air. Harsh productive cough. Very NISQUALLY. Blind in both eyes- sees shadows. Follow up: SNF when their tube feeding supplies arrive.
--- NOTE | 2016-06-27 12:07 | NUR ---
Patient to transfer to [facility] today. Spoke with a daughter and son. They moved a few things into his new room yesterday. They are in agreement with the plans. [facility] faxed orders to [facility]. Nurse will call nurse to nurse report. Patient to transfer via [facility] van to [facility] today at 1430 for skilled care.
--- NOTE | 2016-06-27 12:20 | NUR ---
PATIENT IS 89 YEAR OLD MALE WHO WAS ADMITTED ON THE FOR FALL WHICH RESULTED IN SUBDURAL HEMATOMA. A CRANI WAS PERFORM ON THE . HE TRANSFERED FROM ICU TO NTU. PATIENT HAD ASPIRATED AND DEVELOP PNEUMONIA PER PREVIOUS NURSES REPORT. ON AMOXICILLAN. PEG TUB PLACED ON . PT IS ALERT TO SELF. 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 EYES APPEAR BLOODSHOT VERY [place]. TALK ON THE RIGHT SIDE. COURSE LUNG SOUNDS. THICK DAWSON SPUTUM SUCTION OUT. ON RA. ACTIVE BS. INCONTINENT. INCISION TO LEFT HEAD OPEN TO AIR. OLD SKIN TEAR TO LEFT BALDWIN. RUNNING JEVITY 1.5 AT 60ML/HR WITH FLUSHES OF H2O 250 EVERY 4 HOURS. PLANS TO GO TO [facility] AT 1430 TODAY.
== END 2016-06-27 14:58 | DRG 25 ==
LOC: GACC 11:34 → GICU 14:12 → GNTU 14:12 → GICU 18:31 → GNTU 06-10 11:52 → GICU 06-11 09:48 → GNTU 06-14 15:58
PROVIDERS: Emergency Medicine; Family Medicine; Internal Medicine Interventional Cardiology; ADMIT Family Medicine
PROC: 00C40ZZ Extirpation of Matter from Intracranial Subdural Space, Open Approach (ICD-10-PCS; principal; 2016-06-11)
PROC: 30233N1 Transfusion of Nonautologous Red Blood Cells into Peripheral Vein, Percutaneous Approach (ICD-10-PCS; 2016-06-11)
PROC: 0DH63UZ Insertion of Feeding Device into Stomach, Percutaneous Approach (ICD-10-PCS; 2016-06-21)
PROC: 3E0G76Z Introduction of Nutritional Substance into Upper GI, Via Natural or Artificial Opening (ICD-10-PCS; 2016-06-21)
DX: S06.5X0A Traumatic subdural hemorrhage without loss of consciousness, initial encounter (principal); I21.4 Non-ST elevation (NSTEMI) myocardial infarction; J69.0 Pneumonitis due to inhalation of food and vomit; E87.0 Hyperosmolality and hypernatremia; G93.40 Encephalopathy, unspecified; E46 Unspecified protein-calorie malnutrition; N30.00 Acute cystitis without hematuria; F03.90 Unspecified dementia, unspecified severity, without behavioral disturbance, psychotic disturbance, mood disturbance, and anxiety; I25.10 Atherosclerotic heart disease of native coronary artery without angina pectoris; Z86.73 Personal history of transient ischemic attack (TIA), and cerebral infarction without residual deficits; E78.5 Hyperlipidemia, unspecified; F41.9 Anxiety disorder, unspecified; Z87.891 Personal history of nicotine dependence; Z96.643 Presence of artificial hip joint, bilateral; I12.9 Hypertensive chronic kidney disease with stage 1 through stage 4 chronic kidney disease, or unspecified chronic kidney disease; N18.3 Chronic kidney disease, stage 3 (moderate); I27.2 Other secondary pulmonary hypertension; I07.1 Rheumatic tricuspid insufficiency; K21.9 Gastro-esophageal reflux disease without esophagitis; Z79.82 Long term (current) use of aspirin; Z95.1 Presence of aortocoronary bypass graft; W18.30XA Fall on same level, unspecified, initial encounter; H54.0 Blindness, both eyes; Z66 Do not resuscitate; Z68.25 Body mass index [BMI] 25.0-25.9, adult
CPT/HCPCS: A9539; A9540; C1713; C1763; C9113; J0282; J0295; J0360; J0690; J0696; J2001; J2405; J2597; J7030; J7040; J7050; J7060; P9035

== ENCOUNTER → 2016-06-09 | Outpatient (CLI) | payer MEDICARE, BC ==
[~2016-06-09] MED LIST: ASPIRIN (CHILDR81 MG PO; CARBAMIDE PEROX15 ML OTIC; CLOPIDOGREL75 MG PO; EUCERIN CREME120 GM TOP; FLOMAX0.4 MG PO; LASIX40 MG PO; LEVAQUIN 750 M750 MG PO; METOPROLOL TART25 MG PO; MILK OF MA400 MG/5 M PO; MIRALAX17 GM PO; MOMETASONE FURO45 GM TOP; MURO 128 5% OP3.5 GM OPHTH; OLANZAPINE5 MG PO; PRESERVISION A1 EACH PO; PRINIVIL OR ZES10 MG PO; REFRESH TEARS15 ML OPHTH; TYLENOL EXTRA500 MG PO; TYLENOL325 MG PO; ULTRAM50 MG PO; VITAMIN B-125000 MC1 PO; VITAMIN D-32000 UNI1 PO; ZANTAC150 MG PO; ZOCOR20 MG PO; ZYLOPRIM100 MG PO
== END | disposition disaster alternative care site (69) ==
LOC: GAMB 11:11
DX: R55 Syncope and collapse (principal); R29.6 Repeated falls
CPT/HCPCS: A0422; A0425; A0427